=== PATIENT | male | born 1965 | race Two or more races ===

== ENCOUNTER 2017-01-07 10:47 | Inpatient (IN) | payer OTHER ==
--- NOTE | 2017-01-07 12:43 | PDOC ---
History of Present Illness - General Chief Complaint: Abscess Boil Stated Complaint: ABSCESS ON BACK Time Seen by Provider: 01/07/17 12:16 History Source: Patient Exam Limitations: No Limitations - History of Present Illness Initial Comments: 01/07/17 13:38 51-year-old male with borderline diabetes presents with worsening abscesses to the upper back. Patient states initially started as pimples and at the week went on day got redder bigger and started to drain pus colored fluid. Patient states also has had chills without a recordable fever. Patient denies radiation of pain, difficulty breathing, neck stiffness, or headache. Patient states has acne normally to his back but never to this extent and denies history of MRSA. Timing/Duration: getting worse Severity: moderate Associated Symptoms: reports: fever/chills Past History - Past Medical History Allergies/Adverse Reactions: Allergies Allergy/AdvReac Type Severity Reaction Status Date / Time No Known Allergies Allergy Verified 01/07/17 11:12 Home Medications: Ambulatory Orders NK [No Known Home Medication] 01/07/17 Diabetes: Yes (? dm no meds, non complaint) - Psycho/Social/Smoking Cessation Hx Anxiety: No Suicidal Ideation: No Smoking Status: No Smoking History: Never smoked Have you smoked in the past 12 months: No Number of Cigarettes Smoked Daily: 0 Information on smoking cessation initiated: No Hx Alcohol Use: No Drug/Substance Use Hx: No Patient Lives Alone: No Review of Systems - Review of Systems Able to Perform ROS?: Yes Constitutional: Yes: Chills. No: Fever HEENTM: No: Symptoms Reported Respiratory: No: Symptoms reported Cardiac (ROS): No: Lightheadedness ABD/GI: No: Symptoms Reported Integumentary: Yes: Erythema, Lumps Neurological: No: Symptoms reported Endocrine: No: Symptoms Reported Hematologic/Lymphatic: No: Symptoms Reported *Physical Exam - Vital Signs Last Vital Signs Temp Pulse Resp BP Pulse Ox 98.7 F 103 H 18 129/90 100 01/07/17 11:12 01/07/17 11:12 01/07/17 11:12 01/07/17 11:12 01/07/17 11:12 - Physical Exam General Appearance: Yes: Nourished, Appropriately Dressed. No: Apparent Distress Respiratory/Chest: positive: Lungs Clear, Normal Breath Sounds. negative: Respiratory Distress, Accessory Muscle Use Cardiovascular: positive: Regular Rhythm, Regular Rate. negative: Murmur Extremity: positive: Normal Capillary Refill. negative: Pedal Edema Integumentary: positive: Erythema (5 x 4" erythematous and my firm area over bilateral upper trapezius area with central region draining nonodorous purulent drainage. Area with increased warmth no palpable fluctuance. ) Neurologic: positive: Motor Strength 02/14 ED Treatment Course - LABORATORY CBC & Chemistry Diagram: 01/09/17 06:40 01/09/17 11:45 Medical Decision Making - Critical Care Time Total Critical Care Time (minutes): 35 Critical Care Statement: The care of this patient involved high complexity decision making to prevent further life threatening deterioration of the patient 's condition and/or to evalute & treat vital organ system(s) failure or risk of failure. - Medical Decision Making 01/07/17 13:15 Patient with redness and draining purulent fluid from his upper back for the past week. Patient on exam had large draining increased warmth abscesses to his upper trapezius. patient concerning for sepsis. Patient ordered for septic workup IV clindamycin, and wound cultures. 01/07/17 16:36 Laboratory Tests 01/07/17 01/07/17 01/07/17 13:08 13:08 13:08 Mixed VBG HCO3 Sodium 127 L Potassium 4.5 Chloride 88 L D Carbon Dioxide 26 Anion Gap 13 Random Glucose 579 H* D Lactic Acid 3.191 H* Alkaline Phosphatase 272 H Albumin 2.9 L Urine Glucose (UA) 3+ H Urine Ketones Trace H Acetone, Qual 01/07/17 01/07/17 14:40 16:29 Mixed VBG HCO3 24.0 Sodium Potassium Chloride Carbon Dioxide Anion Gap Random Glucose Lactic Acid Alkaline Phosphatase Albumin Urine Glucose (UA) Urine Ketones Acetone, Qual Pending 01/07/17 16:50 Patient added for second bag of IV fluid. Patient will be admitted to the hospitalist team since patient does not have a PCP. Patient will be sent for an ultrasound of the area to assess for depth and exact location. Patient will be admitted to hospitalist Dr. Bunn 01/07/17 18:39 Laboratory Tests 01/07/17 01/07/17 01/07/17 13:08 13:08 13:08 WBC 17.6 H Hgb 13.7 Hct 41.8 Plt Count 279 D INR 1.30 H Lactic Acid Urine Glucose (UA) 3+ H Urine Ketones Trace H Acetone, Qual 01/07/17 01/07/17 16:29 17:30 WBC Hgb Hct Plt Count INR Lactic Acid 1.986 Urine Glucose (UA) Urine Ketones Acetone, Qual Negative 01/07/17 18:39 Repeat bgm after 2nd bag 436. Pt ordered for 8 unit sq on insulin *DC/Admit/Observation/Transfer Diagnosis at time of Disposition: Cellulitis of back Sepsis Qualifiers: Sepsis type: sepsis due to unspecified organism Qualified Code(s): A41.9 - Sepsis, unspecified organism - Discharge Dispostion Admit: Yes
[2017-01-07] MEDS ORDERED: SODIUM CHLORIDE 1,000 ML IV STA ×3 (13:24→16:56)
[2017-01-07] MEDS ORDERED: CLINDAMYCIN IVPB 300 MG in DEXTROSE 5%-WATER - 48 ML IVPB ONE (13:27)
[2017-01-07] MEDS ORDERED: CLINDAMYCIN PHOSPHATE 600 MG/4 ML VIAL ONE (14:09)
[2017-01-07 14:43] LABS: VENOUS PH 7.37 (7.32-7.42)
--- NOTE | 2017-01-07 14:43 | PDOC ---
*Physical Exam - Vital Signs Last Vital Signs Temp Pulse Resp BP Pulse Ox 98.7 F 103 H 18 129/90 100 01/07/17 11:12 01/07/17 11:12 01/07/17 11:12 01/07/17 11:12 01/07/17 11:12 - Physical Exam Comments: 01/07/17 14:43 MIDLEVEL NOTE Pt seen by Midlevel Provider under my direct supervision. Pt interviewed and examined. Ancillary studies reviewed. I agree with plan as outlined by Midlevel Provider. EKG Normal sinus rhythm 100, normal axis Mode AV and IV conduction time Normal QTC Nonspecific ST-T waves There is no old EKG available for comparison 01/07/17 15:53 Laboratory Results - last 24 hr 01/07/17 14:40 VBG pH 7.37 POC VBG pCO2 42.1 POC VBG pO2 34.7 Mixed VBG HCO3 24.0 01/07/17 16:53 Laboratory Results - last 24 hr 01/07/17 01/07/17 01/07/17 13:08 13:08 13:08 WBC 17.6 H RBC 4.88 Hgb 13.7 Hct 41.8 MCV 85.6 MCHC 32.7 RDW 13.1 Plt Count 279 D MPV 7.7 Neutrophils % Y Lymphocytes % Y VBG pH POC VBG pCO2 POC VBG pO2 Mixed VBG HCO3 Sodium 127 L Potassium 4.5 Chloride 88 L D Carbon Dioxide 26 Anion Gap 13 BUN 14 Creatinine 1.1 D Creat Clearance w eGFR > 60 Random Glucose 579 H* D Lactic Acid Calcium 8.8 Total Bilirubin 0.5 AST 26 ALT 35 Alkaline Phosphatase 272 H Total Protein 8.0 Albumin 2.9 L Urine Color Straw Urine Appearance Clear Urine pH 6.0 Ur Specific [place] 1.035 Urine Protein Negative Urine Glucose (UA) 3+ H Urine Ketones Trace H Urine Blood Negative Urine Nitrite Negative Urine Bilirubin Negative Urine Urobilinogen Negative Ur Leukocyte Esterase Negative Blood Type Antibody Screen 01/07/17 01/07/17 01/07/17 13:08 13:08 14:40 WBC RBC Hgb Hct MCV MCHC RDW Plt Count MPV Neutrophils % Lymphocytes % VBG pH 7.37 POC VBG pCO2 42.1 POC VBG pO2 34.7 Mixed VBG HCO3 24.0 Sodium Potassium Chloride Carbon Dioxide Anion Gap BUN Creatinine Creat Clearance w eGFR Random Glucose Lactic Acid 3.191 H* Calcium Total Bilirubin AST ALT Alkaline Phosphatase Total Protein Albumin Urine Color Urine Appearance Urine pH Ur Specific [place] Urine Protein Urine Glucose (UA) Urine Ketones Urine Blood Urine Nitrite Urine Bilirubin Urine Urobilinogen Ur Leukocyte Esterase Blood Type O POSITIVE Antibody Screen Negative 51 male with two large upper back abscess and two smaller back abscesses causing cellulitis, erythema and discharge with leukocytosis lactic acid 3.1, DM OOC ED Treatment Course - LABORATORY CBC & Chemistry Diagram: 01/08/17 07:40 01/08/17 07:40 *DC/Admit/Observation/Transfer Diagnosis at time of Disposition: Cellulitis of back Sepsis Qualifiers: Sepsis type: sepsis due to unspecified organism Qualified Code(s): A41.9 - Sepsis, unspecified organism - Discharge Dispostion Admit: Yes
[2017-01-07] MEDS ORDERED: ACETAMINOPHEN 500 MG TABLET (FP) PO ONE (15:31)
--- NOTE | 2017-01-07 15:54 | EKG ---
Test Reason : Blood Pressure : / mmHG Vent. Rate : 100 BPM Atrial Rate : 100 BPM P-R Int : 142 ms QRS Dur : 096 ms QT Int : 348 ms P-R-T Axes : 056 042 007 degrees QTc Int : 448 ms NORMAL SINUS RHYTHM NONSPECIFIC T WAVE ABNORMALITY ABNORMAL ECG NO PREVIOUS ECGS AVAILABLE Confirmed by LESLEE CADET MD ([id number]) on 01/07/2017 3:54:52 PM Referred By: Confirmed By:LESLEE CADET MD
[2017-01-07 15:56] LABS: URINE APPEARANCE CLEAR; URINE BILIRUBIN NEGATIVE (NEGATIVE); URINE BLOOD NEGATIVE (NEGATIVE); URINE COLOR STRAW; URINE GLUCOSE (UA) 3+ (NEGATIVE); URINE KETONE TRACE (NEGATIVE); URINE LEUK ESTERASE NEGATIVE (NEGATIVE); URINE NITRITE NEGATIVE (NEGATIVE); URINE PROTEIN NEGATIVE (NEGATIVE); URINE UROBILINOGEN NEGATIVE E.U./dl (0.2-1.0)
[2017-01-07 15:59] LABS: ALBUMIN 2.9 g/dl (3.4-5.0); ALK PHOS 272 U/L (45-117); ANION GAP 13 (8-16); BILIRUBIN,TOTAL 0.5 mg/dL (0.2-1.0); CALCIUM 8.8 mg/dL (8.5-10.1); CO2 26 mmol/L (21-32); CREATININE 1.1 mg/dL (0.7-1.3); SGOT/AST 26 U/L (15-37); SGPT/ALT 35 U/L (12-78)
[2017-01-07 16:00] LABS: GLUCOSE,RANDOM 579 mg/dL (74-106); MCHC 32.7 g/dl (32.0-35.9); MEAN CELL VOLUME 85.6 fl (80-96); MEAN PLT VOLUME 7.7 fl (7.5-11.1); PLATELET COUNT 279 K/MM3 (134-434); RDW 13.1 % (11.9-15.9); WHITE BLOOD COUNT 17.6 K/mm3 (4.0-10.0)
[2017-01-07] MEDS ORDERED: ACETAMINOPHEN 325 MG TABLET (FP) ONE (16:03)
[2017-01-07 16:41] LABS: INR 1.3 (0.82-1.09); PROTHROMBIN TIME (PATIENT) 14.4 SEC (9.98-11.88)
[2017-01-07] MEDS ORDERED: PIPERACILLIN/TAZOB 4.5 GM/100 ML PRE-DOCKED IVPB ONE (18:00)
[2017-01-07] MEDS ORDERED: VANCOMYCIN 2,000 MG in DEXTROSE 5%-WATER - 500 ML IVPB ONE ×2 (18:00→22:30)
[2017-01-07] MEDS ORDERED: PIPERACILLIN/TAZOB 4.5 GM 100 ML IVPB ONE (18:18)
--- NOTE | 2017-01-07 18:31 | HP ---
CHIEF COMPLAINT:back wound PCP:n/a HISTORY OF PRESENT ILLNESS: 51 yea old male with no known past medical history except for "borderline diabetes" as per patient, presents to the emergency room complaining of 2 open wounds on back that he noticed 6 days ago. He said they started out as a pimple and opened with pus and surrounding swelling and erythema. He fell that area on his back is warm. He denies fever, chills. He was never had any skin infection before. He does not take any medication for diabetes. ER course was notable for: (1)2 open wounds on upper mid back; (2)Lactic acid 3.1; wbc 17 (3)glucose 579 Recent Travel: no PAST MEDICAL HISTORY: none to report PAST SURGICAL HISTORY: Social History: Smoking:quit 10yrs ago Alcohol:quit 10yrs ago Drugs: none Family History: Allergies No Known Allergies Allergy (Verified 01/07/17 11:12) HOME MEDICATIONS: Home Medications Medication Instructions Recorded NK [No Known Home Medication] 01/07/17 REVIEW OF SYSTEMS CONSTITUTIONAL: Absent: fever, chills, diaphoresis, generalized weakness, malaise, loss of appetite, weight change HEENT: Absent: rhinorrhea, nasal congestion, throat pain, throat swelling, difficulty swallowing, mouth swelling, ear pain, eye pain, visual changes CARDIOVASCULAR: Absent: chest pain, syncope, palpitations, irregular heart rate, lightheadedness , peripheral edema RESPIRATORY: Absent: cough, shortness of breath, dyspnea with exertion, orthopnea, wheezing, stridor, hemoptysis GASTROINTESTINAL: Absent: abdominal pain, abdominal distension, nausea, vomiting, diarrhea, constipation, melena, hematochezia GENITOURINARY: Absent: dysuria, frequency, urgency, hesitancy, hematuria, flank pain, genital pain MUSCULOSKELETAL: Absent: myalgia, arthralgia, joint swelling, back pain, neck pain SKIN: Positive: open skin wound puss, redness swelling Absent: rash, itching, pallor HEMATOLOGIC/IMMUNOLOGIC: Absent: easy bleeding, easy bruising, lymphadenopathy, frequent infections ENDOCRINE: Absent: unexplained weight gain, unexplained weight loss, heat intolerance, cold intolerance NEUROLOGIC: Absent: headache, focal weakness or paresthesias, dizziness, unsteady gait, seizure, mental status changes, bladder or bowel incontinence PSYCHIATRIC: Absent: anxiety, depression, suicidal or homicidal ideation, hallucinations. PHYSICAL EXAMINATION GENERAL: Awake, alert, and fully oriented, in no acute distress. HEAD: Normal with no signs of trauma. EYES: Pupils equal, round and reactive to light, extraocular movements intact, sclera anicteric, conjunctiva clear. No lid lag. EARS, NOSE, THROAT: Ears normal, nares patent, oropharynx clear without exudates. Moist mucous membranes. NECK: Normal range of motion, supple without lymphadenopathy, JVD, or masses. LUNGS: Breath sounds equal, clear to auscultation bilaterally. No wheezes, and no crackles. No accessory muscle use. HEART: Regular rate and rhythm, normal S1 and S2 without murmur, rub or gallop. ABDOMEN: Soft, nontender, not distended, normoactive bowel sounds, no guarding, no rebound, no masses. No hepatomegaly or splenomegaly. MUSCULOSKELETAL: Normal range of motion at all joints. No bony deformities or tenderness. No CVA tenderness. UPPER EXTREMITIES: 2+ pulses, warm, well-perfused. No cyanosis. No clubbing. No peripheral edema. LOWER EXTREMITIES: 2+ pulses, warm, well-perfused. No calf tenderness. No peripheral edema. NEUROLOGICAL: Cranial nerves II-XII intact. Normal speech. Normal gait. PSYCHIATRIC: Cooperative. Good eye contact. Appropriate mood and affect. SKIN: Warm, affected area supra scapular region on back one on left/one on right [id number] lesion with draining puss, surrounding erythema, edema, ASSESSMENT/PLAN: 51 year old male with past medical history of borderline diabetes not on any medications, presents with two open lesion on back with surrounding erythema, edema, oozing pus, and pain, admitted for sepsis secondary to cellulitis. # Sepsis secondary to cellulitis of the back -elevated wbc 17, LA 3.1 -IVF bolus x3; maintenance NS 150ml/s hr until LA trends down -wound cx, blood cx -start IV antibiotics -ultrasound area r/o abscess -ID / surgery consult for possible I/D # Uncontrolled Diabetes; not on any medications: -glucose 597 on admission; no associated symptoms -insulin 8U in ER -start insulin SS; -hemoglobin A1C #hypernatremia secondary to elevated glucose -corrected NA 135; wnl FEN: Fluids: NS 150mls/hr Electrolyes; wnl Diet: diabetic VTE prophylaxis: loxenox Disposition: IV antibiotics; surgery consuly Visit type - Emergency Visit Emergency Visit: Yes ED Registration Date: 01/07/17 Care time: The patient presented to the Emergency Department on the above date and was hospitalized for further evaluation of their emergent condition. - New Patient This patient is new to me today: Yes Date on this admission: 01/07/17 - Critical Care Critical Care patient: No
[2017-01-07] MEDS ORDERED: INSULIN REGULAR HUMAN 100 UNITS/ML *VIAL SQ ONE (18:38)
[2017-01-07] MEDS ORDERED: INSULIN REGULAR HUMAN 100 UNITS/ML *VIAL ONE (18:42)
[2017-01-07] MEDS ORDERED: SODIUM CHLORIDE 1,000 ML IV SCH (18:45)
[2017-01-07] MEDS: ACETAMINOPHEN 325 MG TABLET (FP) PO PRN (20:24)
[2017-01-07] MEDS ORDERED: INSULIN SLIDING SCALE (NOVOLOG) 1 VIAL SQ SCH (22:00)
[2017-01-07 22:13] LABS: PLATELET ESTIMATE ADEQUATE (NORMAL)
[2017-01-07] MEDS: INSULIN SLIDING SCALE (NOVOLOG) 1 VIAL SQ SCH (22:29)
[2017-01-08 00:05] VITALS: BMI 29.5
[2017-01-08] MEDS: SODIUM CHLORIDE 1,000 ML IV SCH ×3 (01:43→17:43)
[2017-01-08] MEDS ORDERED: ACETAMINOPHEN 1000 MG/100 ML VIAL (NON FORMULARY) IVPB ONE (02:32)
--- NOTE | 2017-01-08 02:35 | HOSP ---
Subjective - Review of Symptoms Events since last encounter: Was paged by the nurse to inform that patient's temp is 102 F. Patient's blood culture was done yesterday hence didn't order blood culture. He is now NPO for possible surgery in the morning. Ordered IV Tylenol 1gm stat for fever. Physical Examination Vital Signs: Vital Signs Temperature 99.9 F H 01/07/17 22:00 Pulse Rate 101 H 01/07/17 21:00 Respiratory Rate 16 01/07/17 21:00 Blood Pressure 159/84 01/07/17 21:00 O2 Sat by Pulse Oximetry (%) 100 01/07/17 21:00 Visit type - Emergency Visit Emergency Visit: Yes ED Registration Date: 01/07/17 Care time: The patient presented to the Emergency Department on the above date and was hospitalized for further evaluation of their emergent condition. - New Patient This patient is new to me today: Yes Date on this admission: 01/08/17 - Critical Care Critical Care patient: No
[2017-01-08] MEDS: INSULIN SLIDING SCALE (NOVOLOG) 1 VIAL SQ SCH ×4 (06:31→22:30)
[2017-01-08] MEDS ORDERED: SODIUM CHLORIDE 1,000 ML IV SCH (06:32)
[2017-01-08] MEDS ORDERED: morphine CARPU-JECT 2 MG/1 ML DISP.SYRIN IVPUSH PRN ×2 (07:44→16:09)
[2017-01-08 08:29] LABS: MCH 28.4 pg (25.7-33.7); MCHC 33.5 g/dl (32.0-35.9); MEAN CELL VOLUME 84.9 fl (80-96); MEAN PLT VOLUME 7.3 fl (7.5-11.1); PLATELET COUNT 259 K/MM3 (134-434); RDW 12.9 % (11.9-15.9); WHITE BLOOD COUNT 21.1 K/mm3 (4.0-10.0)
[2017-01-08 08:53] LABS: ALBUMIN 2.2 g/dl (3.4-5.0); ANION GAP 12 (8-16); CALCIUM 7.9 mg/dL (8.5-10.1); CO2 24 mmol/L (21-32); CREATININE 0.7 mg/dL (0.7-1.3); GLUCOSE,RANDOM 211 mg/dL (74-106); SGOT/AST 20 U/L (15-37); SGPT/ALT 25 U/L (12-78)
[2017-01-08 08:56] LABS: ALK PHOS 204 U/L (45-117); BILIRUBIN,TOTAL 0.7 mg/dL (0.2-1.0); TOT PROT 6.6 g/dl (6.4-8.2)
[2017-01-08] MEDS ORDERED: ENOXAPARIN NA (PORCINE) 40 MG/0.4 ML DISP.SYRIN SQ SCH (10:00)
--- NOTE | 2017-01-08 10:05 | PN ---
Progress Note (short form) - Note Progress Note: ID consult dictated 51 year old man with DM- doesn't go to the doctor, doesn't take any meds developed enlarging abscesses at the site of small pustules on his back- they have been enlarging over the last 6 days +fevers no history of MRSA, no history of prior skin infection received vancomycin/zosyn/clindamycin in ED PE notable for fever 2 large abscess draining purulent material multiple small pustules on his back erythema flanks wbc 21k lactic acid 3.1 /1.9 repeat Laboratory Tests 01/08/17 07:40 Hemoglobin A1c % 11.9 H a/p sepsis secondary to skin infection large subcutaneous abscesses/cellulitis uncontrolled diabetes continue vancomycin and zosyn most likely staph but given uncontrolled DM will treat GNR too needs operative debridement Problem List - Problems (1) Sepsis Code(s): A41.9 - SEPSIS, UNSPECIFIED ORGANISM Qualifiers: Sepsis type: sepsis due to unspecified organism Qualified Code(s): A41.9 - Sepsis, unspecified organism (2) Abscess Code(s): L02.91 - CUTANEOUS ABSCESS, UNSPECIFIED (3) Diabetes Code(s): E11.9 - TYPE 2 DIABETES MELLITUS WITHOUT COMPLICATIONS
[2017-01-08] MEDS ORDERED: morphine CARPU-JECT 2 MG/1 ML DISP.SYRIN IVPUSH ONE (11:45)
[2017-01-08] MEDS ORDERED: PIPERACILLIN/TAZOB 3.375 GM 50 ML IVPB ONE (11:55)
--- NOTE | 2017-01-08 12:08 | CONSULT ---
Consult Consult Specialty:: Surgery Reason for Consultation:: Back abscesses - History of Present Illness History of Present Illness: 51 male presents for two upper back abscesses that he started to notice six days prior They increased in size, became tender, red, and noticed purulent discharge Denies fevers/chills/nausea/vomiting Also states he started to notice two smaller lower back collection that have developed as well - History Source History Provided By: Patient, Family Member - Past Medical History Endocrine: Yes: Diabetes Mellitus (Borderline) - Alcohol/Substance Use Hx Alcohol Use: No - Smoking History Smoking history: Never smoked Have you smoked in the past 12 months: No Aproximately how many cigarettes per day: 0 - Social History ADL: Independent Home Medications - Allergies Allergies/Adverse Reactions: Allergies Allergy/AdvReac Type Severity Reaction Status Date / Time No Known Allergies Allergy Verified 01/07/17 11:12 - Home Medications Home Medications: Ambulatory Orders NK [No Known Home Medication] 01/07/17 Family Disease History - Family Disease History Family History: Unremarkable Review of Systems - Review of Systems Constitutional: denies: Chills, Fever Neck: reports: No Symptoms Cardiovascular: denies: Chest Pain Respiratory: denies: Cough Gastrointestinal: denies: Abdominal Pain, Nausea, Vomiting Genitourinary: reports: No Symptoms Integumentary: reports: Erythema, Other (Purulent discharge from upper back collections) Neurological: denies: Change in LOC Pain Intensity: 3 Physical Exam Vital Signs: Vital Signs Temperature 99.3 F 01/08/17 09:00 Pulse Rate 96 H 01/08/17 09:00 Respiratory Rate 18 01/08/17 09:00 Blood Pressure 132/75 01/08/17 09:00 O2 Sat by Pulse Oximetry (%) 100 01/07/17 21:00 Constitutional: Yes: Calm HENT: Yes: WNL Neck: Yes: Supple Cardiovascular: Yes: Regular Rate and Rhythm Respiratory: Yes: CTA Bilaterally Gastrointestinal: Yes: Soft. No: Distention, Tenderness, Tenderness, Rebound Extremities: Yes: WNL Integumentary: Yes: Other (Large upper back wounds x 2- + Erythema, + purulent discharge, + tender, + surrounding skin edema and thickening, central ulcerations both 2cm x 2cm in size Lower back wounds x 2- + erythema) Neurological: Yes: Alert, Oriented Labs: CBC, BMP 01/08/17 07:40 01/08/17 07:40 Problem List - Problems (1) Cellulitis of back Code(s): L03.312 - CELLULITIS OF BACK [ANY PART EXCEPT BUTTOCK] (2) Diabetes Code(s): E11.9 - TYPE 2 DIABETES MELLITUS WITHOUT COMPLICATIONS Qualifiers: Diabetes mellitus type: other specified (including LETICIA) (3) Abscess of upper back excluding scapular region Code(s): L02.212 - CUTANEOUS ABSCESS OF BACK [ANY PART, EXCEPT BUTTOCK] (4) Abscess of lower back Code(s): L02.212 - CUTANEOUS ABSCESS OF BACK [ANY PART, EXCEPT BUTTOCK] (5) Leukocytosis Code(s): D72.829 - ELEVATED WHITE BLOOD CELL COUNT, UNSPECIFIED Qualifiers: Leukocytosis type: other Qualified Code(s): D72.828 - Other elevated white blood cell count Assessment/Plan 51 male with two large upper back abscess and two smaller back abscesses causing cellulitis, erythema and discharge with leukocytosis Will need incision and drainage in the OR Antibiotics per ID Wound care and packing daily
[2017-01-08] MEDS ORDERED: PIPERACILLIN/TAZOB 4.5 GM/100 ML PRE-DOCKED IVPB SCH ×3 (12:15→18:00)
[2017-01-08 12:29] LABS: METAMYELOCYTE 1 % (0-2)
[2017-01-08] MEDS ORDERED: VANCOMYCIN 1,250 MG in DEXTROSE 5%-WATER - 250 ML IVPB SCH (12:30)
[2017-01-08 12:31] LABS: PLATELET ESTIMATE ADEQUATE (NORMAL)
[2017-01-08] MEDS ORDERED: LIDOCAINE HCL 1%, 10 MG/ML (20ML VIAL) ONE (13:21)
[2017-01-08] MEDS: ACETAMINOPHEN 325 MG TABLET (FP) PO PRN (13:55)
--- NOTE | 2017-01-08 13:59 | CONS ---
DATE OF CONSULTATION: DATE OF DICTATION: 01/08/2017 REQUESTING PHYSICIAN: The hospitalist service. HISTORY OF PRESENT ILLNESS: This is a 51-year-old man on no medicines, he has no doctor, he has a history of diabetes for the last 3 years, he does not take any medicine, and he presented to the emergency room with large abscess on his back. He said they started as small pustules which he has scattered on his back. Over the course of the last 6 days, they enlarged. He has 2 very large abscesses now on his shoulders. They are draining both when pressure is applied or draining pus. He has had fever, as well. He has no difficulty breathing. He has no neck stiffness. He has no headache. He has never had a skin infection before. He has never had MRSA. ALLERGIES: He has no known drug allergies. MEDICATIONS: He takes no medicines. PAST MEDICAL HISTORY: Notable for diabetes for 3 years, but he is not taking any medicines. FAMILY HISTORY: Noncontributory. SOCIAL HISTORY: He is . He lives with his family. There is no history of any alcohol use. There is no history of any cigarette use. 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 REVIEW OF SYSTEMS: Notable for 6 days of intermittent fevers, worsening infection on his worsening abscesses. He denies diarrhea, nausea, and vomiting. He has had fevers and chills. PHYSICAL EXAMINATION Vital signs: Current temperature is 99.3, maximum temperature was 102.5. His blood pressure is 132/75, pulse at 96, respiratory rate 18, saturating 100% on room air. HEENT: He is normocephalic. His eyes are anicteric. He has no conjunctival hemorrhages. He has no thrush. Neck: Supple. Lungs: Clear to auscultation. Heart: Regular rate and rhythm. Abdomen: Soft, nontender. Extremities: Without edema. Back: On his back, he has 2 very large abscesses with erythema and some purulent drainage on pressure in his upper back. He has some small pustules on his lower back, and he has some erythema of his flanks. DIAGNOSTIC DATA: Labs are notable for a white count of 21,000, hemoglobin 12.5, platelets are 259. BUN is 11, creatinine is 0.7, hemoglobin A1c is 11.9, alkaline phosphatase is 205. Urinalysis is notable for a glucose, otherwise negative. Acetones are negative. Blood cultures and cultures to the wound are pending. Sonogram of the back was done that revealed subcutaneous density from the right and left upper back. His lactic acid was 3.1 in the emergency room, repeat at 1.9. SUMMARY: This is a 51-year-old man with uncontrolled diabetes with sepsis secondary to skin infection with large subcutaneous abscesses and cellulitis. This is most likely staphylococcus, but given his uncontrolled diabetes, I would treat him for gram-negative rods, as well. Would continue vancomycin and Zosyn. He needs operative debridement, which is being planned for today. Further recommendations to followed based on his clinical course. ALLY AMEZCUA M.D. [id number]
[2017-01-08] MEDS ORDERED: DESFLURANE GAS 240 ML BOTTLE IH ONE (14:15)
[2017-01-08] MEDS ORDERED: SEVOFLURANE 250 ML BTL ONE (14:19)
[2017-01-08] MEDS ORDERED: PROPOFOL 20 ML ONE ×3 (14:23)
[2017-01-08] MEDS ORDERED: MIDAZOLAM HCL 2 MG/2 ML SINGLE DOSE VIAL ONE ×2 (14:24)
[2017-01-08] MEDS ORDERED: KETAMINE HCL 200 MG/20 ML VIAL ONE (14:31)
[2017-01-08] MEDS ORDERED: KETOROLAC TROMETHAMINE 30 MG/1 ML VIAL ONE (14:45)
[2017-01-08] MEDS ORDERED: LIDOCAINE HCL 1%, 10 MG/ML (20ML VIAL) IJ ONE ×2 (14:52)
--- NOTE | 2017-01-08 15:05 | PN ---
Teaching Attending Note Name of Resident: Ila Covington ATTENDING PHYSICIAN STATEMENT I saw and evaluated the patient. I reviewed the resident's note and discussed the case with the resident. I agree with the resident's findings and plan as documented. SUBJECTIVE: seen and evaluated at the bedside OBJECTIVE: two areas of induration and erthema draining pus on upper back ASSESSMENT AND PLAN: 51 year old man with newly diagnosed DM admitted for sepsis due to 2 abscesses on upper back abscesses -surgery consult appreciated, for I+D in O.R. today -ID consult appreciated; agree with vanc/zosyn -follow up cultures -trend WBC and temp DM -pt is newly diagnosed as he does not follow with a PMD -Hb A1C of 12 -cont sliding scale -will likely discharge on Metformin
--- NOTE | 2017-01-08 15:25 | OP ---
Operative Note - Note: Operative Date: 01/08/17 Pre-Operative Diagnosis: Upper back abscess x 2. Lower back abscess x 2 Operation: Incision and drainage of back abscess x 4 Findings: Large upper back abscess cavities with copious amounts of purulent drainage Post-Operative Diagnosis: Same as Pre-op Surgeon: Gamaliel Moise Receiving Specialist: Marilu Johnson Anesthesia: General Specimens Removed: Culture x 2 Estimated Blood Loss (mls): 5 Operative Report Dictated: Yes
[2017-01-08] MEDS ORDERED: LACTATED RINGERS SOLUTION 1,000 ML IV SCH (15:45)
[2017-01-08] MEDS ORDERED: ACETAMINOPHEN 325 MG TABLET (FP) PO PRN (16:09)
[2017-01-08] MEDS ORDERED: OXYCODONE/APAP 5/325MG COMBO TABLET PO PRN (16:37)
[2017-01-08] MEDS ORDERED: HYDROmorphone HCL CARPU-JECT 1 MG/1 ML DISP.SYRIN IVPB PRN (16:37)
--- NOTE | 2017-01-08 16:53 | PN ---
Physical Exam: SUBJECTIVE: Patient seen and examined increased pain this am, fever 102F overnight. OR today for I/D OBJECTIVE: Vital Signs Period Temp Pulse Resp BP Sys/Cabrera Pulse Ox Last 24 Hr 99.1 F-102.5 F 85-101 16-18 126-159/59-89 99-100 GENERAL: The patient is awake, alert, and fully oriented, in no acute distress. HEAD: Normal with no signs of trauma. EYES: PERRL, extraocular movements intact, sclera anicteric, conjunctiva clear. No ptosis. ENT: Ears normal, nares patent, oropharynx clear without exudates, moist mucous membranes. NECK: Trachea midline, full range of motion, supple. LUNGS: Breath sounds equal, clear to auscultation bilaterally, no wheezes, no crackles, no accessory muscle use. HEART: Regular rate and rhythm, S1, S2 without murmur, rub or gallop. ABDOMEN: Soft, nontender, nondistended, normoactive bowel sounds, no guarding, no rebound, no hepatosplenomegaly, no masses. EXTREMITIES: 2+ pulses, warm, well-perfused, no edema. NEUROLOGICAL: Cranial nerves II through XII grossly intact. Normal speech, gait not observed. PSYCH: Normal mood, normal affect. SKIN: Warm, dry, normal turgor, no rashes or lesions noted; two [id number] open infected, draining purulent fluid on left and right back, with surrounding erythema and edema. Laboratory Results - last 24 hr 01/07/17 01/07/17 01/07/17 17:30 18:28 21:17 WBC RBC Hgb Hct MCV MCHC RDW Plt Count MPV Neutrophils % Lymphocytes % Monocytes % Eosinophils % Basophils % Band Neutrophils Metamyelocytes Differential Comment Platelet Estimate Sodium Potassium Chloride Carbon Dioxide Anion Gap BUN Creatinine Creat Clearance w eGFR POC Glucometer > 400 250 Random Glucose Hemoglobin A1c % Lactic Acid 1.986 Calcium Total Bilirubin AST ALT Alkaline Phosphatase Total Protein Albumin Random Vancomycin 01/08/17 01/08/17 01/08/17 05:49 07:40 07:40 WBC 21.1 H RBC 4.41 Hgb 12.5 Hct 37.4 MCV 84.9 MCHC 33.5 RDW 12.9 Plt Count 259 MPV 7.3 L Neutrophils % 81.0 Lymphocytes % 11.0 D Monocytes % 4.0 Eosinophils % 1.0 Basophils % 0.0 Band Neutrophils 2.0 D Metamyelocytes 1 Differential Comment Manual diff done Platelet Estimate Adequate Sodium 135 L Potassium 4.9 Chloride 99 D Carbon Dioxide 24 Anion Gap 12 BUN 11 D Creatinine 0.7 D Creat Clearance w eGFR > 60 POC Glucometer 223 Random Glucose 211 H D Hemoglobin A1c % Lactic Acid Calcium 7.9 L Total Bilirubin 0.7 D AST 20 D ALT 25 D Alkaline Phosphatase 204 H D Total Protein 6.6 Albumin 2.2 L D Random Vancomycin 01/08/17 01/08/17 01/08/17 07:40 10:10 12:10 WBC RBC Hgb Hct MCV MCHC RDW Plt Count MPV Neutrophils % Lymphocytes % Monocytes % Eosinophils % Basophils % Band Neutrophils Metamyelocytes Differential Comment Platelet Estimate Sodium Potassium Chloride Carbon Dioxide Anion Gap BUN Creatinine Creat Clearance w eGFR POC Glucometer 202 Random Glucose Hemoglobin A1c % 11.9 H Lactic Acid Calcium Total Bilirubin AST ALT Alkaline Phosphatase Total Protein Albumin Random Vancomycin 6.173 Active Medications Generic Name Dose Route Start Last Admin Trade Name Freq PRN Reason Stop Dose Admin Acetaminophen 650 mg 01/08/17 16:09 Tylenol - PO Q4H PRN FEVER OR PAIN Fentanyl 50 mcg 01/08/17 15:43 Sublimaze Injection - IVPUSH 01/11/17 15:44 [id number] PRN PAIN Hydromorphone HCl 1 mg 01/08/17 16:37 Dilaudid Injection - IVPB Q4H PRN PAIN Lactated Ringer's 1,000 mls @ 75 mls/hr 01/08/17 15:45 Lactated Ringers Solution IV ASDIR MONSERRAT Sodium Chloride 1,000 mls @ 100 mls/hr 01/08/17 16:09 Normal Saline - IV ASDIR MONSERRAT Vancomycin HCl 1,250 mg/ 250 mls @ 250 mls/hr 01/08/17 22:00 Dextrose IVPB BID MONSERRAT Protocol Insulin Aspart 0 vial 01/08/17 16:30 Novolog Vial Sliding Scale - SQ ACHS [facility] Protocol Oxycodone/Acetaminophen 2 combo 01/08/17 16:37 Percocet 5/325 - PO Q4H PRN PAIN LEVEL 6-10 Piperacillin Sod/Tazobactam Sod 4.5 gm 01/08/17 18:00 Zosyn 4.5gm Ivpb (Pre-Docked) IVPB Q8H-IV MONSERRAT ASSESSMENT/PLAN: 51 year old male with past medical history of borderline diabetes not on any medications, presents with two open lesion on back with surrounding erythema, edema, oozing pus, and pain, admitted for sepsis secondary to cellulitis. # Sepsis secondary to multiple abscess of the back; I&D today -wbc count increased from 17 to 21 this am; fever 102 overnight; lactic acid trended down -IVF LR 75mls hr -wound cx, blood cx pending -start IV antibiotics -ID / surgery # Uncontrolled Diabetes; not on any medications: -glucose 597 on admission; no associated symptoms -insulin SS; -hemoglobin A1C 11.9 #hypernatremia secondary to elevated glucose -corrected NA 135; wnl FEN: Fluids: LR 75mls/hr Electrolyes; wnl Diet: diabetic VTE prophylaxis: loxenox Disposition: IV antibiotics; surgery consult Visit type - Emergency Visit Emergency Visit: Yes ED Registration Date: 01/07/17 Care time: The patient presented to the Emergency Department on the above date and was hospitalized for further evaluation of their emergent condition. - New Patient This patient is new to me today: No - Critical Care Critical Care patient: No
[2017-01-08] MEDS: PIPERACILLIN/TAZOB 4.5 GM/100 ML PRE-DOCKED IVPB SCH (21:20)
[2017-01-08] MEDS: VANCOMYCIN 1,250 MG in DEXTROSE 5%-WATER - 250 ML IVPB SCH (22:31)
[2017-01-09] MEDS: PIPERACILLIN/TAZOB 4.5 GM/100 ML PRE-DOCKED IVPB SCH ×3 (06:09→21:11)
[2017-01-09] MEDS: INSULIN SLIDING SCALE (NOVOLOG) 1 VIAL SQ SCH ×5 (06:09→21:43)
[2017-01-09] MEDS: SODIUM CHLORIDE 1,000 ML IV SCH ×3 (06:10→21:11)
[2017-01-09 07:37] LABS: MCHC 32.8 g/dl (32.0-35.9); MEAN CELL VOLUME 85.3 fl (80-96); MEAN PLT VOLUME 7.3 fl (7.5-11.1); PLATELET COUNT 264 K/MM3 (134-434); RDW 12.8 % (11.9-15.9); WHITE BLOOD COUNT 20.8 K/mm3 (4.0-10.0)
[2017-01-09 08:10] LABS: CALCIUM 8.1 mg/dL (8.5-10.1); CREATININE 0.8 mg/dL (0.7-1.3)
--- NOTE | 2017-01-09 08:44 | OP ---
DATE OF OPERATION: 01/08/2017 SURGEON: Elisabet Moise MD DIRECTOR OF EDUCATION: DESIREE Mccarthy PREOPERATIVE DIAGNOSIS: Upper back abscess cavity x2, lower back abscess cavity x2. POSTOPERATIVE DIAGNOSIS: Upper back abscess cavity x2, lower back abscess cavity x2. PROCEDURE PERFORMED: Incision and drainage of back abscesses x4. ANESTHESIA: General. SPECIMEN: Culture x2. REASON FOR PROCEDURE: This is a 51-year-old gentleman who presented to the hospital for tenderness, redness and drainage noted at 2 areas on his upper back, consistent with abscess cavities. In addition, edema, cellulitis and open ulcerations were noted on exam. There was also noted to be purulent discharge from both ulcer cavities. In addition, there were 2 small abscess cavities in the lower aspect of his back. He developed a fever and had leukocytosis. Because of this, he was consented for incision and drainage of back abscesses x4. The risks and benefits of the procedure were explained. These included bleeding, infection, prolonged wound healing, and injury to surrounding structures. Informed consent was obtained. DESCRIPTION OF PROCEDURE: The patient was placed prone on the operating room table. He underwent MAC by Anesthesia. The area was prepped and draped with Betadine in the usual sterile fashion. A time-out was performed. Lateral incisions were made at both upper back abscesses, and copious amounts of purulent drainage was noted. Blunt finger dissection was used to break open all abscess cavity pockets. Again, further extensive copious purulent drainage was noted from both wounds. The abscess cavities were approximately 4 x 4 x 4 cm in diameter. Hemostasis was obtained using electrocautery and pressure. Both were copiously irrigated and suctioned. Both were packed tightly with Kerlix soaked in Betadine. Dressings were applied. The lower back abscesses were noted to be small, and stab wound incisions were made to open them up. Purulent discharge was noted from both as well. Hemostasis was achieved with pressure and dressing was applied. The patient tolerated the procedure well and was transferred to the recovery room in stable condition. ELISABET MOISE M.D. DANYELLE/[id number]
[2017-01-09 09:29] LABS: PLATELET ESTIMATE ADEQUATE (NORMAL)
[2017-01-09] MEDS: VANCOMYCIN 1,250 MG in DEXTROSE 5%-WATER - 250 ML IVPB SCH ×2 (09:50→22:31)
--- NOTE | 2017-01-09 11:54 | PN ---
Progress Note (short form) - Note Progress Note: POD 1 Incision and drainage of back abscesses x 4 Pain controlled No events Vital Signs Period Temp Pulse Resp BP Sys/Cabrera Pulse Ox Last 24 Hr 97.6 F-102.5 F 73-101 12-20 119-146/68-86 86-100 Wounds packed- to be changed by RN daily CBC, BMP 01/09/17 06:40 01/09/17 06:40 Doing well Continue antibiotics Daily dressing changes with kerlex in betadine VNS ordered Can be discharged home on antibiotics per ID when WBC normalizes Problem List - Problems (1) Cellulitis of back Code(s): L03.312 - CELLULITIS OF BACK [ANY PART EXCEPT BUTTOCK] (2) Diabetes Code(s): E11.9 - TYPE 2 DIABETES MELLITUS WITHOUT COMPLICATIONS Qualifiers: Diabetes mellitus type: other specified (including LETICIA) (3) Abscess of upper back excluding scapular region Code(s): L02.212 - CUTANEOUS ABSCESS OF BACK [ANY PART, EXCEPT BUTTOCK] (4) Abscess of lower back Code(s): L02.212 - CUTANEOUS ABSCESS OF BACK [ANY PART, EXCEPT BUTTOCK] (5) Leukocytosis Code(s): D72.829 - ELEVATED WHITE BLOOD CELL COUNT, UNSPECIFIED Qualifiers: Leukocytosis type: other Qualified Code(s): D72.828 - Other elevated white blood cell count
--- NOTE | 2017-01-09 11:56 | PN ---
<Ila Covington - Last Filed: 01/09/17 11:57> Physical Exam: SUBJECTIVE: Patient seen and examined POD #1 I&D for back abscesses x4; afebrile ; wbc still elevated; pain well controlled. OBJECTIVE: Vital Signs Period Temp Pulse Resp BP Sys/Cabrera Pulse Ox Last 24 Hr 97.6 F-102.5 F 73-101 12-20 119-146/68-86 86-100 GENERAL: The patient is awake, alert, and fully oriented, in no acute distress. HEAD: Normal with no signs of trauma. EYES: PERRL, extraocular movements intact, sclera anicteric, conjunctiva clear. No ptosis. ENT: Ears normal, nares patent, oropharynx clear without exudates, moist mucous membranes. NECK: Trachea midline, full range of motion, supple. LUNGS: Breath sounds equal, clear to auscultation bilaterally, no wheezes, no crackles, no accessory muscle use. HEART: Regular rate and rhythm, S1, S2 without murmur, rub or gallop. ABDOMEN: Soft, nontender, nondistended, normoactive bowel sounds, no guarding, no rebound, no hepatosplenomegaly, no masses. EXTREMITIES: 2+ pulses, warm, well-perfused, no edema. NEUROLOGICAL: Cranial nerves II through XII grossly intact. Normal speech, gait not observed. PSYCH: Normal mood, normal affect. SKIN: Warm, dry, normal turgor, POD#1 for abscess drain; wounds clean dry in tact, no puss or drainage from site; still with erythema and some swelling surrounding wound Laboratory Results - last 24 hr 01/08/17 01/08/17 01/08/17 07:40 12:10 17:04 WBC RBC Hgb Hct MCV MCHC RDW Plt Count MPV Neutrophils % 81.0 Lymphocytes % 11.0 D Monocytes % 4.0 Eosinophils % 1.0 Basophils % 0.0 Band Neutrophils 2.0 D Metamyelocytes 1 Differential Comment Manual diff done Platelet Estimate Adequate Sodium Potassium Chloride Carbon Dioxide Anion Gap BUN Creatinine POC Glucometer 202 267 Random Glucose Calcium 01/08/17 01/09/17 01/09/17 21:12 05:46 06:40 WBC 20.8 H RBC 4.28 Hgb 12.0 Hct 36.5 MCV 85.3 MCHC 32.8 RDW 12.8 Plt Count 264 MPV 7.3 L Neutrophils % 94.0 H Lymphocytes % 4.0 L D Monocytes % 1.0 L Eosinophils % Basophils % Band Neutrophils 2.0 Metamyelocytes Differential Comment Manual diff done Platelet Estimate Adequate Sodium Potassium Chloride Carbon Dioxide Anion Gap BUN Creatinine POC Glucometer 397 317 Random Glucose Calcium 01/09/17 06:40 WBC RBC Hgb Hct MCV MCHC RDW Plt Count MPV Neutrophils % Lymphocytes % Monocytes % Eosinophils % Basophils % Band Neutrophils Metamyelocytes Differential Comment Platelet Estimate Sodium 134 L Potassium 4.7 Chloride 98 Carbon Dioxide 22 Anion Gap 14 BUN 21 H D Creatinine 0.8 POC Glucometer Random Glucose 341 H* D Calcium 8.1 L Active Medications Generic Name Dose Route Start Last Admin Trade Name Freq PRN Reason Stop Dose Admin Acetaminophen 650 mg 01/08/17 16:09 Tylenol - PO Q4H PRN FEVER OR PAIN Acetaminophen 650 mg 01/08/17 17:01 Tylenol - PO 01/11/17 17:00 Q4H PRN PAIN 6-10 Hydromorphone HCl 1 mg 01/08/17 16:37 Dilaudid Injection - IVPB Q4H PRN PAIN Lactated Ringer's 1,000 mls @ 75 mls/hr 01/08/17 15:45 01/08/17 19:10 Lactated Ringers Solution IV Not Given ASDIR MONSERRAT Sodium Chloride 1,000 mls @ 100 mls/hr 01/08/17 16:09 01/09/17 06:10 Normal Saline - IV 100 mls/hr ASDIR MONSERRAT Administration Vancomycin HCl 1,250 mg/ 250 mls @ 166.667 mls/hr 01/08/17 22:00 01/09/17 09:50 Dextrose IVPB 166.667 mls/hr BID MONSERRAT Administration Protocol Insulin Aspart 1 vial 01/08/17 16:30 01/09/17 06:09 Novolog Vial Sliding Scale - SQ 8 units ACHS MONSERRAT Administration Protocol Oxycodone HCl 10 mg 01/08/17 17:01 Roxicodone - PO Q4H PRN PAIN 6-10 Piperacillin Sod/Tazobactam Sod 4.5 gm 01/08/17 22:00 01/09/17 06:09 Zosyn 4.5gm Ivpb (Pre-Docked) IVPB 4.5 gm 0600,1400,2200 MONSERRAT Administration ASSESSMENT/PLAN: 51 year old male with past medical history of borderline diabetes not on any medications, presents with two open lesion on back with surrounding erythema, edema, oozing pus, and pain, admitted for sepsis secondary to cellulitis. # Sepsis secondary to multiple abscess of the back; I&D POD1 -wbc count still 20.8 this am; no fever overnight -IVF LR 75mls hr -dressing with kerlex in betadine daily -wound cx, blood cx pending -cont IV antibiotics with vanc and zosyn; check vano trough # Newly diagnosed Diabetes type II; -check insulin need in 24hr; patient was npo yesterday for sx -insulin SS; -hemoglobin A1C 11.9 #hypernatremia -resolved FEN: Fluids: LR 75mls/hr Electrolyes; wnl Diet: diabetic VTE prophylaxis: loxenox Disposition: IV antibiotics; surgery consult can d/c when wbc trend down; po antibiotics as per id; f/u cultures Visit type - Emergency Visit Emergency Visit: Yes ED Registration Date: 01/07/17 Care time: The patient presented to the Emergency Department on the above date and was hospitalized for further evaluation of their emergent condition. - New Patient This patient is new to me today: No - Critical Care Critical Care patient: No <Segundo Bunn - Last Filed: 01/09/17 12:21> Physical Exam: ATTENDING PHYSICIAN STATEMENT I saw and evaluated the patient. I reviewed the resident's note and discussed the case with the resident. I agree with the resident's findings and plan as documented. SUBJECTIVE: seen and evaluated at the bedside OBJECTIVE: two areas of induration and erthema draining pus on upper back ASSESSMENT AND PLAN: 51 year old man with newly diagnosed DM admitted for sepsis due to 2 abscesses on upper back abscesses -surgery consult appreciated s/p I+D in O.R. with large amount of puss removed -ID consult appreciated; agree with vanc/zosyn -follow up cultures -trend WBC and temp DM -pt is newly diagnosed as he does not follow with a PMD -Hb A1C of 12 -cont sliding scale -will likely discharge on Metformin and lifestyle modification as a starting point
[2017-01-09] MEDS: ACETAMINOPHEN 325 MG TABLET (FP) PO PRN (12:04)
[2017-01-09] MEDS: oxyCODONE HCL 5 MG TABLET PO PRN (12:05)
[2017-01-09 14:38] LABS: HIV 1 & 2 AB NEGATIVE; HIV 1 AGp24 NEGATIVE
--- NOTE | 2017-01-09 15:48 | PN ---
Progress Note (short form) - Note Progress Note: feels better no fever Vital Signs Period Temp Pulse Resp BP Sys/Cabrera Pulse Ox Last 24 Hr 97.6 F-99 F 73-98 12-20 119-140/68-82 86-100 cor-rrr lungs clear dressings intact on back- will examine in am CBC, BMP 01/09/17 06:40 01/09/17 11:45 Microbiology 01/07/17 13:08 Blood - Peripheral Venous Blood Culture - Preliminary NO GROWTH OBTAINED AFTER 48 HOURS, INCUBATION TO CONTINUE FOR 3 DAYS. 01/07/17 13:08 Blood - Peripheral Venous Blood Culture - Preliminary NO GROWTH OBTAINED AFTER 48 HOURS, INCUBATION TO CONTINUE FOR 3 DAYS. 01/07/17 13:08 Back Gram Stain - Final 01/07/17 13:08 Back Wound Culture - Preliminary Presumptive Mssa (Pbp2a Neg) 01/07/17 13:08 Urine - Urine Clean Catch Urine Culture - Final a/p s/p drainage of multiple subcutaneous abscesses uncontrolled DM continue vanco/zosyn f/u cultures in am Problem List - Problems (1) Sepsis Code(s): A41.9 - SEPSIS, UNSPECIFIED ORGANISM Qualifiers: Sepsis type: sepsis due to unspecified organism Qualified Code(s): A41.9 - Sepsis, unspecified organism (2) Abscess Code(s): L02.91 - CUTANEOUS ABSCESS, UNSPECIFIED (3) Diabetes Code(s): E11.9 - TYPE 2 DIABETES MELLITUS WITHOUT COMPLICATIONS Qualifiers: Diabetes mellitus type: other specified (including LETICIA)
[2017-01-09] MEDS ORDERED: INSULIN DETEMIR 100 UNITS/ML MDV SQ ONE (18:51)
[2017-01-09] MEDS ORDERED: INSULIN SLIDING SCALE (NOVOLOG) 1 VIAL SQ SCH (19:00)
[2017-01-09] MEDS ORDERED: INSULIN (NOVOLOG) ASPART 100 UNITS/ML 10ML VIAL SQ ONE (19:01)
[2017-01-10] MEDS: INSULIN SLIDING SCALE (NOVOLOG) 1 VIAL SQ SCH ×5 (02:01→21:36)
[2017-01-10] MEDS: PIPERACILLIN/TAZOB 4.5 GM/100 ML PRE-DOCKED IVPB SCH (05:51)
[2017-01-10] MEDS: INSULIN DETEMIR 100 UNITS/ML MDV SQ SCH ×2 (06:36→17:57)
[2017-01-10 07:59] LABS: MCH 28.1 pg (25.7-33.7); MCHC 33.1 g/dl (32.0-35.9); MEAN PLT VOLUME 7.2 fl (7.5-11.1); PLATELET COUNT 314 K/MM3 (134-434); RDW 12.8 % (11.9-15.9); WHITE BLOOD COUNT 17.1 K/mm3 (4.0-10.0)
[2017-01-10 08:24] LABS: ALBUMIN 2.2 g/dl (3.4-5.0); ALK PHOS 186 U/L (45-117); ANION GAP 9 (8-16); BILIRUBIN,TOTAL 0.4 mg/dL (0.2-1.0); CALCIUM 7.8 mg/dL (8.5-10.1); CO2 27 mmol/L (21-32); CREATININE 0.8 mg/dL (0.7-1.3); GLUCOSE,RANDOM 200 mg/dL (74-106); SGOT/AST 25 U/L (15-37); SGPT/ALT 27 U/L (12-78); TOT PROT 6.6 g/dl (6.4-8.2)
[2017-01-10] MEDS ORDERED: PT OWN MED DRAWER 7, Y5N ONE (09:51)
[2017-01-10] MEDS: VANCOMYCIN 1,250 MG in DEXTROSE 5%-WATER - 250 ML IVPB SCH (09:52)
[2017-01-10 10:05] LABS: METAMYELOCYTE 1 % (0-2); PLATELET ESTIMATE ADEQUATE (NORMAL)
[2017-01-10] MEDS ORDERED: INSULIN (NOVOLOG) ASPART 100 UNITS/ML 10ML VIAL ONE (10:27)
--- NOTE | 2017-01-10 13:00 | PN ---
Teaching Attending Note Name of Resident: Ila Covington ATTENDING PHYSICIAN STATEMENT I saw and evaluated the patient. I reviewed the resident's note and discussed the case with the resident. I agree with the resident's findings and plan as documented. SUBJECTIVE: seen and evaluated at the bedside OBJECTIVE: two areas of induration and erthema draining pus on upper back ASSESSMENT AND PLAN: 51 year old man with newly diagnosed DM admitted for sepsis due to 2 abscesses on upper back abscesses -surgery consult appreciated s/p I+D in O.R. with large amount of puss removed -ID consult appreciated; currently on vanc/zosyn -cultures growing presumptive MSSA -will switch to oxacillin once culture data is finalized DM -pt is newly diagnosed as he does not follow with a PMD -Hb A1C of 12 -started on levemir 10 BID -cont sliding scale -as glucose has been difficult to control with silding scale and A1c is elevated will discharge pt on insulin
--- NOTE | 2017-01-10 13:58 | PN ---
Progress Note (short form) - Note Progress Note: doing better Vital Signs Period Temp Pulse Resp BP Sys/Cabrera Pulse Ox Last 24 Hr 97.6 F-98.9 F 73-98 18-18 111-136/57-71 96 cor-rrr lungs clear back wounds examined left upper back with open wound with purulent drainage and large area of induration, right upper back open wound with minimal drainage +induration CBC, BMP 01/10/17 06:00 01/10/17 06:00 Microbiology 01/08/17 15:45 Abscess Gram Stain - Final 01/08/17 15:45 Abscess Body Fluid Culture - Preliminary Presumptive Mssa (Pbp2a Neg) 01/08/17 15:45 Abscess Gram Stain - Final 01/08/17 15:45 Abscess Body Fluid Culture - Preliminary Presumptive Mssa (Pbp2a Neg) 01/07/17 13:08 Back Gram Stain - Final 01/07/17 13:08 Back Wound Culture - Preliminary Staphylococcus Aureus 01/07/17 13:08 Blood - Peripheral Venous Blood Culture - Preliminary NO GROWTH OBTAINED AFTER 48 HOURS, INCUBATION TO CONTINUE FOR 3 DAYS. 01/07/17 13:08 Blood - Peripheral Venous Blood Culture - Preliminary NO GROWTH OBTAINED AFTER 48 HOURS, INCUBATION TO CONTINUE FOR 3 DAYS. 01/07/17 13:08 Urine - Urine Clean Catch Urine Culture - Final a/p MSSA abscesses- switch to nafcillin continue local wound care not ready for discharge diabetes-sugars improving Problem List - Problems (1) Sepsis Code(s): A41.9 - SEPSIS, UNSPECIFIED ORGANISM Qualifiers: Sepsis type: sepsis due to unspecified organism Qualified Code(s): A41.9 - Sepsis, unspecified organism (2) Abscess Code(s): L02.91 - CUTANEOUS ABSCESS, UNSPECIFIED (3) Diabetes Code(s): E11.9 - TYPE 2 DIABETES MELLITUS WITHOUT COMPLICATIONS Qualifiers: Diabetes mellitus type: other specified (including LETICIA)
--- NOTE | 2017-01-10 14:42 | PN ---
Physical Exam: SUBJECTIVE: Patient seen and examined no events overnight, afebrile. Minor pain. OBJECTIVE: Vital Signs Period Temp Pulse Resp BP Sys/Cabrera Pulse Ox Last 24 Hr 97.6 F-98.8 F 73-88 18-18 111-134/57-70 96 GENERAL: The patient is awake, alert, and fully oriented, in no acute distress. HEAD: Normal with no signs of trauma. LUNGS: Breath sounds equal, clear to auscultation bilaterally, no wheezes, no crackles, no accessory muscle use. HEART: Regular rate and rhythm, S1, S2 without murmur, rub or gallop. ABDOMEN: Soft, nontender, nondistended, normoactive bowel sounds, no guarding, no rebound, no hepatosplenomegaly, no masses. EXTREMITIES: 2+ pulses, warm, well-perfused, no edema. NEUROLOGICAL: Cranial nerves II through XII grossly intact. Normal speech, gait not observed. PSYCH: Normal mood, normal affect. SKIN: Warm, dry, normal turgor, no rashes BACK: patient with 4abcesses s/p i&D wounds this am not draining, still with surrounding erythema and edema. CBC, BMP 01/10/17 06:00 01/10/17 06:00 Active Medications Generic Name Dose Route Start Last Admin Trade Name Freq PRN Reason Stop Dose Admin Acetaminophen 650 mg 01/08/17 16:09 Tylenol - PO Q4H PRN FEVER OR PAIN Acetaminophen 650 mg 01/08/17 17:01 01/09/17 12:04 Tylenol - PO 01/11/17 17:00 650 mg Q4H PRN Administration PAIN 6-10 Hydromorphone HCl 1 mg 01/08/17 16:37 Dilaudid Injection - IVPB Q4H PRN PAIN Sodium Chloride 1,000 mls @ 100 mls/hr 01/08/17 16:09 01/09/17 21:11 Normal Saline - IV 100 mls/hr ASDIR MONSERRAT Administration Nafcillin Sodium 2 gm/ Sodium 100 mls @ 100 mls/hr 01/10/17 14:50 Chloride IVPB Q4H-IV MONSERRAT Protocol Insulin Aspart 1 vial 01/10/17 13:00 Novolog Vial Sliding Scale - SQ ACHS MONSERRAT Protocol Insulin Detemir 10 units 01/10/17 07:00 01/10/17 06:36 Levemir Vial SQ 10 units BIDI MONSERRAT Administration Oxycodone HCl 10 mg 01/08/17 17:01 01/09/17 12:05 Roxicodone - PO 10 mg Q4H PRN Administration PAIN 6-10 ASSESSMENT/PLAN: 51 year old male with past medical history of borderline diabetes not on any medications, presents with two open lesion on back with surrounding erythema, edema, oozing pus, and pain, admitted for sepsis secondary to cellulitis. # Sepsis secondary to multiple abscess of the back; I&D POD2 -wbc count slightly trending down 17 today form 20; afebrile; -PE this am i did not appreciate any pus from wound still with erythema and some swelling; when I spoke to ID; there was pus with examination pus -IVF NS 100mls hr -dressing with kerlex in betadine daily -wound cx, MSSA+ -switch antibiotic to nafcillin # Newly diagnosed Diabetes type II; -levemir 20U bid -insulin SS; bgm q4h -hemoglobin A1C 11.9 #hypernatremia -resolved FEN: Fluids: LR 100mls/hr Electrolyes; wnl Diet: diabetic VTE prophylaxis: loxenox Disposition: IV antibiotics; surgery consult can d/c when wbc trend down; still with purulent pus from wound site as per ID; not ready for dc Visit type - Emergency Visit Emergency Visit: Yes ED Registration Date: 01/07/17 Care time: The patient presented to the Emergency Department on the above date and was hospitalized for further evaluation of their emergent condition. - New Patient This patient is new to me today: No - Critical Care Critical Care patient: No
[2017-01-10] MEDS: oxyCODONE HCL 5 MG TABLET PO PRN ×2 (15:09→20:10)
[2017-01-10] MEDS: NAFCILLIN - 2 GM in SODIUM CHLORIDE 100 ML IVPB SCH ×3 (17:34→21:36)
[2017-01-10] MEDS: SODIUM CHLORIDE 1,000 ML IV SCH (17:36)
--- NOTE | 2017-01-10 17:59 | PN ---
Progress Note (short form) - Note Progress Note: No acute events AVSS Wounds packed WBC 17 Continue antibiotics per ID Daily wound care Discharge home when WBC normalizes No further surgical intervention at this time Problem List - Problems (1) Cellulitis of back Code(s): L03.312 - CELLULITIS OF BACK [ANY PART EXCEPT BUTTOCK] (2) Diabetes Code(s): E11.9 - TYPE 2 DIABETES MELLITUS WITHOUT COMPLICATIONS Qualifiers: Diabetes mellitus type: other specified (including LETICIA) (3) Abscess of upper back excluding scapular region Code(s): L02.212 - CUTANEOUS ABSCESS OF BACK [ANY PART, EXCEPT BUTTOCK] (4) Abscess of lower back Code(s): L02.212 - CUTANEOUS ABSCESS OF BACK [ANY PART, EXCEPT BUTTOCK] (5) Leukocytosis Code(s): D72.829 - ELEVATED WHITE BLOOD CELL COUNT, UNSPECIFIED Qualifiers: Leukocytosis type: other Qualified Code(s): D72.828 - Other elevated white blood cell count
[2017-01-10] MEDS: ACETAMINOPHEN 325 MG TABLET (FP) PO PRN (20:11)
[2017-01-11] MEDS: NAFCILLIN - 2 GM in SODIUM CHLORIDE 100 ML IVPB SCH ×6 (01:38→21:09)
[2017-01-11] MEDS: SODIUM CHLORIDE 1,000 ML IV SCH ×2 (05:36→17:23)
[2017-01-11] MEDS: INSULIN DETEMIR 100 UNITS/ML MDV SQ SCH (06:36)
[2017-01-11] MEDS: INSULIN SLIDING SCALE (NOVOLOG) 1 VIAL SQ SCH ×4 (06:37→21:09)
[2017-01-11 08:01] LABS: MCH 27.7 pg (25.7-33.7); MCHC 32.9 g/dl (32.0-35.9); MEAN CELL VOLUME 84.2 fl (80-96); MEAN PLT VOLUME 6.6 fl (7.5-11.1); PLATELET COUNT 378 K/MM3 (134-434); WHITE BLOOD COUNT 17.9 K/mm3 (4.0-10.0)
[2017-01-11 08:32] LABS: CALCIUM 8.2 mg/dL (8.5-10.1)
[2017-01-11 08:33] LABS: CREATININE 0.8 mg/dL (0.7-1.3)
[2017-01-11 08:41] LABS: METAMYELOCYTE 1 % (0-2)
[2017-01-11 08:42] LABS: PLATELET ESTIMATE INCREASED (NORMAL); TOXIC GRANULATION 1+
--- NOTE | 2017-01-11 09:06 | PN ---
<Ila Covington - Last Filed: 01/11/17 10:58> Physical Exam: SUBJECTIVE: Patient seen and examined, temp 100.2 overnight. wbc still 17.9. Pain from wound controlled. OBJECTIVE: Vital Signs Period Temp Pulse Resp BP Sys/Cabrera Pulse Ox Last 24 Hr 98.5 F-100.3 F 84-91 18-20 124-134/65-77 96 GENERAL: The patient is awake, alert, and fully oriented, in no acute distress. HEAD: Normal with no signs of trauma. NECK: Trachea midline, full range of motion, supple. LUNGS: Breath sounds equal, clear to auscultation bilaterally, no wheezes, no crackles, no accessory muscle use. HEART: Regular rate and rhythm, S1, S2 without murmur, rub or gallop. ABDOMEN: Soft, nontender, nondistended, normoactive bowel sounds, no guarding, no rebound, no hepatosplenomegaly, no masses. EXTREMITIES: 2+ pulses, warm, well-perfused, no edema. NEUROLOGICAL: Cranial nerves II through XII grossly intact. Normal speech, gait not observed. PSYCH: Normal mood, normal affect. SKIN: Warm, dry, normal turgor, erythema of right flan, no swelling BACK: b/l wound s/p debridement still with draining yellow discharge, wound border becoming black on the right side, still with surrounding edema and erythema Laboratory Results - last 24 hr 01/10/17 01/10/17 01/10/17 06:00 10:24 17:52 WBC RBC Hgb Hct MCV MCHC RDW Plt Count MPV Neutrophils % 79.0 Lymphocytes % 10.0 D Monocytes % 7.0 D Eosinophils % 2.0 D Basophils % 1.0 D Band Neutrophils Metamyelocytes 1 Myelocytes Differential Comment Manual diff done Toxic Granulation Platelet Estimate Adequate Platelet Comment Sodium Potassium Chloride Carbon Dioxide Anion Gap BUN Creatinine POC Glucometer 329 267 Random Glucose Calcium 01/10/17 01/11/17 01/11/17 21:32 05:39 07:30 WBC 17.9 H RBC 4.56 Hgb 12.6 Hct 38.4 MCV 84.2 MCHC 32.9 RDW 13.0 Plt Count 378 D MPV 6.6 L Neutrophils % 74.0 Lymphocytes % 16.0 D Monocytes % 2.0 L Eosinophils % 1.0 Basophils % Band Neutrophils 4.0 D Metamyelocytes 1 Myelocytes 2 Differential Comment Toxic Granulation 1+ Platelet Estimate Increased Platelet Comment No clumping noted Sodium Potassium Chloride Carbon Dioxide Anion Gap BUN Creatinine POC Glucometer 247 163 Random Glucose Calcium 01/11/17 07:30 WBC RBC Hgb Hct MCV MCHC RDW Plt Count MPV Neutrophils % Lymphocytes % Monocytes % Eosinophils % Basophils % Band Neutrophils Metamyelocytes Myelocytes Differential Comment Toxic Granulation Platelet Estimate Platelet Comment Sodium 136 Potassium 4.2 Chloride 101 Carbon Dioxide 26 Anion Gap 9 BUN 11 D Creatinine 0.8 POC Glucometer Random Glucose 173 H Calcium 8.2 L Active Medications Generic Name Dose Route Start Last Admin Trade Name Freq PRN Reason Stop Dose Admin Acetaminophen 650 mg 01/08/17 16:09 Tylenol - PO Q4H PRN FEVER OR PAIN Acetaminophen 650 mg 01/08/17 17:01 01/10/17 20:11 Tylenol - PO 01/11/17 17:00 650 mg Q4H PRN Administration PAIN 6-10 Hydromorphone HCl 1 mg 01/08/17 16:37 Dilaudid Injection - IVPB Q4H PRN PAIN Sodium Chloride 1,000 mls @ 100 mls/hr 01/08/17 16:09 01/11/17 05:36 Normal Saline - IV 100 mls/hr ASDIR MONSERRAT Administration Nafcillin Sodium 2 gm/ Sodium 100 mls @ 100 mls/hr 01/10/17 14:50 01/11/17 05: 36 Chloride IVPB 100 mls/hr Q4H-IV MONSERRAT Administration Protocol Insulin Aspart 1 vial 01/10/17 13:00 01/11/17 06:37 Novolog Vial Sliding Scale - SQ 2 units ACHS MONSERRAT Administration Protocol Insulin Detemir 10 units 01/10/17 07:00 01/11/17 06:36 Levemir Vial SQ 10 units BIDI MONSERRAT Administration Oxycodone HCl 10 mg 01/08/17 17:01 01/10/17 20:10 Roxicodone - PO 10 mg Q4H PRN Administration PAIN 6-10 ASSESSMENT/PLAN: 51 year old male with past medical history of borderline diabetes not on any medications, presents with two open lesions on back with surrounding erythema, edema, purulent discharge, pain, admitted for sepsis secondary to abscesses. # Sepsis secondary to multiple abscess of the back; I&D POD2 -wbc count 17.9 today from 17.1 yesterday; temp 100.2 overnight -PE this am; wounds with black edges; surrounding erythema and +yellow draining fluid -IVF NS 100mls hr -dressing with kerlex in betadine daily -wound cx, MSSA+ -IV nafcillin q4h -surgery will re assess today # Newly diagnosed Diabetes type II; -increased levemir to 22U bid -insulin SS; bgm q4h -hemoglobin A1C 11.9 #hypernatremia -resolved FEN: Fluids: ns 100mls hr Electrolyes; wnl Diet: diabetic VTE prophylaxis: loxenox Disposition: IV antibiotics; still with purulent pus from wound site as per ID; surgery to reassess wound today Visit type - Emergency Visit Emergency Visit: Yes ED Registration Date: 01/07/17 Care time: The patient presented to the Emergency Department on the above date and was hospitalized for further evaluation of their emergent condition. - New Patient This patient is new to me today: No - Critical Care Critical Care patient: No <Segundo Bunn - Last Filed: 01/11/17 11:36> Physical Exam: ATTENDING PHYSICIAN STATEMENT I saw and evaluated the patient. I reviewed the resident's note and discussed the case with the resident. I agree with the resident's findings and plan as documented. SUBJECTIVE: seen and evaluated at the bedside OBJECTIVE: two areas of induration and erthema draining pus on upper back ASSESSMENT AND PLAN: 51 year old man with newly diagnosed DM admitted for sepsis due to 2 abscesses on upper back abscesses -surgery consult appreciated s/p I+D in O.R. with large amount of puss removed -ID consult appreciated; currently on vanc/zosyn -cultures growing presumptive MSSA -now on Nafcillin -WBC still elevated and wound still expressing puss; follow up with surgical team DM -pt is newly diagnosed as he does not follow with a PMD -Hb A1C of 12 -started on levemir 10 BID -cont sliding scale -as glucose has been difficult to control with silding scale and A1c is elevated will discharge pt on insulin
[2017-01-11] MEDS ORDERED: INSULIN DETEMIR 100 UNITS/ML MDV SQ SCH ×2 (09:12→16:30)
--- NOTE | 2017-01-11 10:39 | PN ---
Progress Note (short form) - Note Progress Note: POD#3 Pt with complaints of pain at the incision sites. Vital Signs Period Temp Pulse Resp BP Sys/Cabrera Pulse Ox Last 24 Hr 98.5 F-100.3 F 84-91 18-20 124-134/65-77 96 PE: upper back: left wound with necrotic tissue and drainage. No foul odor. No erythema. Right wound with necrotic tissue(less than left) and drainage. No foul odor. No erythema. CBC, BMP 01/11/17 07:30 01/11/17 07:30 A/P: 51 yo male s/p b/l upper shoulder debridement WBC remains elevated and is having low grade temp Will plan for further debridement on Friday Continue IV abx, MSSA on body fluid culture Increase frequency of dressing changes to Q12h D/w Dr. Moise
[2017-01-11] MEDS: oxyCODONE HCL 5 MG TABLET PO PRN (13:05)
[2017-01-11] MEDS: ACETAMINOPHEN 325 MG TABLET (FP) PO PRN (13:24)
--- NOTE | 2017-01-11 14:36 | PN ---
Progress Note (short form) - Note Progress Note: low grade temp overnight d/w resident who has contacted surgery Vital Signs Period Temp Pulse Resp BP Sys/Cabrera Pulse Ox Last 24 Hr 98.5 F-100.3 F 84-96 18-20 124-143/65-77 96 dressing intact- surgery note reviewed CBC, BMP 01/11/17 07:30 01/11/17 07:30 Microbiology 01/08/17 15:45 Abscess Gram Stain - Final 01/08/17 15:45 Abscess Body Fluid Culture - Final Presumptive Mssa (Pbp2a Neg) 01/08/17 15:45 Abscess Anaerobic Culture - Final 01/08/17 15:45 Abscess Gram Stain - Final 01/08/17 15:45 Abscess Body Fluid Culture - Final Staphylococcus Aureus 01/08/17 15:45 Abscess Anaerobic Culture - Final 01/07/17 13:08 Blood - Peripheral Venous Blood Culture - Preliminary NO GROWTH OBTAINED AFTER 72 HOURS, INCUBATION TO CONTINUE FOR 2 DAYS. 01/07/17 13:08 Blood - Peripheral Venous Blood Culture - Preliminary NO GROWTH OBTAINED AFTER 72 HOURS, INCUBATION TO CONTINUE FOR 2 DAYS. 01/07/17 13:08 Back Gram Stain - Final 01/07/17 13:08 Back Wound Culture - Final Staphylococcus Aureus 01/07/17 13:08 Urine - Urine Clean Catch Urine Culture - Final a/p MSSA abscesses- continue nafcillin continue local wound care agree with plans for further debridement diabetes-sugars improving Problem List - Problems (1) Sepsis Code(s): A41.9 - SEPSIS, UNSPECIFIED ORGANISM Qualifiers: Sepsis type: sepsis due to unspecified organism Qualified Code(s): A41.9 - Sepsis, unspecified organism (2) Abscess Code(s): L02.91 - CUTANEOUS ABSCESS, UNSPECIFIED (3) Diabetes Code(s): E11.9 - TYPE 2 DIABETES MELLITUS WITHOUT COMPLICATIONS Qualifiers: Diabetes mellitus type: other specified (including LETICIA)
[2017-01-11] MEDS ORDERED: INSULIN (NOVOLOG) ASPART 100 UNITS/ML 10ML VIAL ONE (20:53)
[2017-01-12] MEDS: NAFCILLIN - 2 GM in SODIUM CHLORIDE 100 ML IVPB SCH ×6 (01:26→22:56)
[2017-01-12] MEDS: SODIUM CHLORIDE 1,000 ML IV SCH (01:33)
[2017-01-12] MEDS: INSULIN SLIDING SCALE (NOVOLOG) 1 VIAL SQ SCH ×4 (06:04→22:56)
[2017-01-12 08:24] LABS: MCH 28.4 pg (25.7-33.7); MCHC 33.7 g/dl (32.0-35.9); MEAN CELL VOLUME 84.2 fl (80-96); MEAN PLT VOLUME 6.7 fl (7.5-11.1); PLATELET COUNT 300 K/MM3 (134-434); RDW 12.8 % (11.9-15.9)
--- NOTE | 2017-01-12 08:54 | PN ---
Progress Note, Physician - Current Medication List Current Medications: Active Medications Acetaminophen (Tylenol -) 650 mg PO Q4H PRN PRN Reason: FEVER OR PAIN Nafcillin Sodium 2 gm/ Sodium (Chloride) 100 mls @ 100 mls/hr IVPB Q4H-IV MONSERRAT PRN Reason: Protocol Last Admin: 01/12/17 06:02 Dose: 100 mls/hr Insulin Aspart (Novolog Vial Sliding Scale -) 1 vial SQ ACHS MONSERRAT PRN Reason: Protocol Last Admin: 01/12/17 06:04 Dose: 2 units Insulin Detemir (Levemir Vial) 20 units SQ ONCE ONE Stop: 01/12/17 08:46 - Objective Vital Signs: Vital Signs Temperature 98.3 F 01/12/17 06:00 Pulse Rate 88 01/12/17 06:00 Respiratory Rate 20 01/12/17 06:00 Blood Pressure 133/75 01/12/17 06:00 O2 Sat by Pulse Oximetry (%) 96 01/11/17 22:00 Constitutional: Yes: Well Nourished, No Distress, Calm Eyes: Yes: WNL, Conjunctiva Clear HENT: Yes: WNL, Atraumatic, Normocephalic Neck: Yes: WNL, Supple, Trachea Midline Cardiovascular: Yes: WNL, Regular Rate and Rhythm Respiratory: Yes: WNL, Regular, CTA Bilaterally Gastrointestinal: Yes: WNL, Normal Bowel Sounds Musculoskeletal: Yes: Other (wounds covered in surgical dressing) Extremities: Yes: WNL Edema: No Integumentary: Yes: WNL Neurological: Yes: WNL, Alert, Oriented ...Motor Strength: WNL Psychiatric: Yes: WNL Labs: CBC, BMP 01/12/17 07:00 INR, PTT INR 1.30 (0.82-1.09) H 01/07/17 13:08 Impression/Plan Impression/Plan: 51 year old man with newly diagnosed DM admitted for sepsis due to 2 abscesses on upper back abscesses -surgery consult appreciated s/p I+D in O.R. with large amount of puss removed -ID consult appreciated; was on vanc/zosyn -cultures growing presumptive MSSA -now on Nafcillin -WBC now improving but wound still expressing puss; for repeat debridement by surgical team DM -pt is newly diagnosed as he does not follow with a PMD -Hb A1C of 12 -started on levemir 10 BID and no improvement so increase to 20 -only give 10 tonight as pt will be NPO -cont sliding scale -as glucose has been difficult to control with silding scale and A1c is elevated will discharge pt on insulin Visit type - Emergency Visit Emergency Visit: Yes ED Registration Date: 01/07/17 Care time: The patient presented to the Emergency Department on the above date and was hospitalized for further evaluation of their emergent condition. - New Patient This patient is new to me today: No - Critical Care Critical Care patient: No
[2017-01-12] MEDS ORDERED: oxyCODONE HCL 5 MG TABLET PO PRN (08:58)
[2017-01-12] MEDS ORDERED: DOCUSATE SODIUM 100 MG CAPSULE (FP) PO PRN (08:58)
[2017-01-12] MEDS ORDERED: INSULIN DETEMIR 100 UNITS/ML MDV SQ ONE ×3 (09:00→22:00)
[2017-01-12 09:03] LABS: CALCIUM 8.1 mg/dL (8.5-10.1); CREATININE 0.7 mg/dL (0.7-1.3)
[2017-01-12] MEDS ORDERED: INSULIN (NOVOLOG) ASPART 100 UNITS/ML 10ML VIAL ONE (11:14)
[2017-01-12 15:02] LABS: METAMYELOCYTE 2 % (0-2); PLATELET ESTIMATE ADEQUATE (NORMAL)
[2017-01-12] MEDS ORDERED: PT OWN MED DRAWER 7, Y5N ONE (22:29)
[2017-01-13] MEDS ORDERED: ceFAZolin SODIUM 1 GM VIAL IVPB ONE
[2017-01-13] MEDS: NAFCILLIN - 2 GM in SODIUM CHLORIDE 100 ML IVPB SCH ×6 (02:30→22:15)
[2017-01-13] MEDS ORDERED: PT OWN MED DRAWER 7, Y5N ONE ×4 (05:40→22:03)
[2017-01-13] MEDS: INSULIN SLIDING SCALE (NOVOLOG) 1 VIAL SQ SCH ×4 (06:05→22:23)
[2017-01-13 06:53] LABS: MCH 28.4 pg (25.7-33.7); MCHC 33.5 g/dl (32.0-35.9); MEAN CELL VOLUME 84.8 fl (80-96); MEAN PLT VOLUME 6.6 fl (7.5-11.1); PLATELET COUNT 349 K/MM3 (134-434); RDW 12.9 % (11.9-15.9); WHITE BLOOD COUNT 13.5 K/mm3 (4.0-10.0)
[2017-01-13] MEDS ORDERED: MIDAZOLAM HCL 2 MG/2 ML SINGLE DOSE VIAL ONE ×2 (09:52)
[2017-01-13] MEDS ORDERED: NAFCILLIN NA 2 GM VIAL IVPB ONE (10:03)
[2017-01-13] MEDS ORDERED: LIDOCAINE 1%/EPI 1:100000 (50 ML MULTI DOSE VIAL) ONE (10:17)
[2017-01-13] MEDS ORDERED: BACITRACIN 50,000 UNITS VIAL TP ONE (10:18)
[2017-01-13] MEDS ORDERED: BUPIVACAINE HCL/PF 0.5% (5MG/ML) 10 ML VIAL IJ ONE (10:18)
[2017-01-13] MEDS ORDERED: LIDOCAINE 1%/EPI 1:100000 (20 ML MULTI DOSE VIAL) INF ONE (10:18)
[2017-01-13] MEDS ORDERED: ONDANSETRON 4 MG/2 ML VIAL IVPUSH PRN ×2 (11:04→13:14)
[2017-01-13] MEDS ORDERED: LACTATED RINGERS SOLUTION 1,000 ML IV SCH ×3 (11:15→15:25)
[2017-01-13 11:55] LABS: METAMYELOCYTE 1 % (0-2); PLATELET ESTIMATE ADEQUATE (NORMAL)
--- NOTE | 2017-01-13 12:05 | OP ---
Operative Note - Note: Operative Date: 01/13/17 Pre-Operative Diagnosis: Necrotic upper back wounds Operation: Excisional debridement and pulse irrigation washout of bilateral upper back wounds Post-Operative Diagnosis: Same as Pre-op Surgeon: Gamaliel Moise Anesthesia: Local, MAC Specimens Removed: Necrotic tissue Estimated Blood Loss (mls): 5 Operative Report Dictated: Yes
[2017-01-13] MEDS ORDERED: DOCUSATE SODIUM 100 MG CAPSULE (FP) PO PRN (13:14)
--- NOTE | 2017-01-13 15:26 | PN ---
Progress Note, Physician - Current Medication List Current Medications: Active Medications Acetaminophen (Tylenol -) 650 mg PO Q4H PRN PRN Reason: FEVER OR PAIN Docusate Sodium (Colace -) 100 mg PO BID PRN PRN Reason: CONSTIPATION Lactated Ringer's (Lactated Ringers Solution) 1,000 mls @ 125 mls/hr IV ASDIR MONSERRAT Last Admin: 01/13/17 14:08 Dose: 125 mls/hr Nafcillin Sodium 2 gm/ Sodium (Chloride) 100 mls @ 100 mls/hr IVPB Q4H-IV MONSERRAT PRN Reason: Protocol Last Admin: 01/13/17 14:08 Dose: 100 mls/hr Insulin Aspart (Novolog Vial Sliding Scale -) 1 vial SQ ACHS MONSERRAT PRN Reason: Protocol Insulin Detemir (Levemir Vial) 25 units SQ BID@0700,2200 MONSERRAT Ondansetron HCl (Zofran Injection) 4 mg IVPUSH Q6H PRN PRN Reason: NAUSEA AND/OR VOMITING Stop: 01/13/17 17:05 Oxycodone HCl (Roxicodone -) 5 mg PO Q4H PRN PRN Reason: PAIN - Objective Vital Signs: Vital Signs Temperature 98.9 F 01/13/17 14:14 Pulse Rate 92 H 01/13/17 14:14 Respiratory Rate 18 01/13/17 14:14 Blood Pressure 137/77 01/13/17 14:14 O2 Sat by Pulse Oximetry (%) 95 01/13/17 12:35 Constitutional: Yes: Well Nourished, No Distress, Calm Eyes: Yes: WNL, Conjunctiva Clear HENT: Yes: WNL, Atraumatic, Normocephalic Neck: Yes: WNL, Supple, Trachea Midline Cardiovascular: Yes: WNL, Regular Rate and Rhythm Respiratory: Yes: WNL, Regular, CTA Bilaterally Gastrointestinal: Yes: WNL, Normal Bowel Sounds Musculoskeletal: Yes: Other (two large ascesses with packing and abdominal pad in place) Extremities: Yes: WNL Edema: No Integumentary: Yes: WNL Neurological: Yes: WNL, Alert, Oriented ...Motor Strength: WNL Psychiatric: Yes: WNL Labs: CBC, BMP 01/13/17 06:15 01/12/17 07:00 INR, PTT INR 1.30 (0.82-1.09) H 01/07/17 13:08 Impression/Plan Impression/Plan: 51 year old man with newly diagnosed DM admitted for sepsis due to 2 abscesses on upper back abscesses -surgery consult appreciated s/p I+D in O.R. with large amount of puss removed -ID consult appreciated; was on vanc/zosyn -cultures growing presumptive MSSA -now on Nafcillin -s/p repeat debridement by surgical team 01/13 DM -pt is newly diagnosed as he does not follow with a PMD -Hb A1C of 12 -cont sliding scale -as glucose has been difficult to control with silding scale and A1c is elevated will discharge pt on insulin Visit type - Emergency Visit Emergency Visit: Yes ED Registration Date: 01/07/17 Care time: The patient presented to the Emergency Department on the above date and was hospitalized for further evaluation of their emergent condition. - New Patient This patient is new to me today: No - Critical Care Critical Care patient: No
--- NOTE | 2017-01-13 15:31 | PN ---
Physical Exam: SUBJECTIVE: Patient seen and examined post op surgery wound re debridement today for multiple infected wound abscesses. Complains of wound pain andrea with pulling back of the tape. No other associated symptoms. Afebrile. OBJECTIVE: Vital Signs Period Temp Pulse Resp BP Sys/Cabrera Pulse Ox Last 24 Hr 98.2 F-99.4 F 76-92 16-20 116-144/69-84 95-100 GENERAL: The patient is awake, alert, and fully oriented, in no acute distress. HEAD: Normal with no signs of trauma. EYES: PERRL, extraocular movements intact, sclera anicteric, conjunctiva clear. No ptosis. ENT: Ears normal, nares patent, oropharynx clear without exudates, moist mucous membranes. NECK: Trachea midline, full range of motion, supple. LUNGS: Breath sounds equal, clear to auscultation bilaterally, no wheezes, no crackles, no accessory muscle use. HEART: Regular rate and rhythm, S1, S2 without murmur, rub or gallop. ABDOMEN: Soft, nontender, nondistended, normoactive bowel sounds, no guarding, no rebound, no hepatosplenomegaly, no masses. EXTREMITIES: 2+ pulses, warm, well-perfused, no edema. NEUROLOGICAL: Cranial nerves II through XII grossly intact. Normal speech, gait not observed. PSYCH: Normal mood, normal affect. SKIN: Warm, dry, normal turgor, no rashes or lesions noted BACK: bilateral open wound s/p debridment of abscesses , packed , no drainage, no puss; significant swelling around borders , with erythema Laboratory Results - last 24 hr 01/12/17 01/12/17 01/13/17 16:27 22:55 06:04 WBC RBC Hgb Hct MCV MCHC RDW Plt Count MPV Neutrophils % Lymphocytes % Monocytes % Eosinophils % Band Neutrophils Metamyelocytes Myelocytes Differential Comment Platelet Estimate POC Glucometer 278 273 165 01/13/17 01/13/17 06:15 11:50 WBC 13.5 H RBC 4.56 Hgb 12.9 Hct 38.7 MCV 84.8 MCHC 33.5 RDW 12.9 Plt Count 349 MPV 6.6 L Neutrophils % 72.0 Lymphocytes % 19.0 D Monocytes % 3.0 L D Eosinophils % 2.0 D Band Neutrophils 1.0 D Metamyelocytes 1 D Myelocytes 2 D Differential Comment Manual diff done Platelet Estimate Adequate POC Glucometer 192 Active Medications Generic Name Dose Route Start Last Admin Trade Name Freq PRN Reason Stop Dose Admin Acetaminophen 650 mg 01/13/17 13:14 Tylenol - PO Q4H PRN FEVER OR PAIN Docusate Sodium 100 mg 01/13/17 13:14 Colace - PO BID PRN CONSTIPATION Nafcillin Sodium 2 gm/ Sodium 100 mls @ 100 mls/hr 01/13/17 14:00 01/13/17 14: 08 Chloride IVPB 100 mls/hr Q4H-IV MONSERRAT Administration Protocol Lactated Ringer's 1,000 mls @ 100 mls/hr 01/13/17 15:25 Lactated Ringers Solution IV ASDIR MONSERRAT Insulin Aspart 1 vial 01/13/17 16:30 Novolog Vial Sliding Scale - SQ ACHS MONSERRAT Protocol Insulin Detemir 25 units 01/13/17 22:00 Levemir Vial SQ BID@0700,2200 MONSERRAT Ondansetron HCl 4 mg 01/13/17 13:14 Zofran Injection IVPUSH 01/13/17 17:05 Q6H PRN NAUSEA AND/OR VOMITING Oxycodone HCl 5 mg 01/13/17 13:14 Roxicodone - PO Q4H PRN PAIN ASSESSMENT/PLAN: 51 year old male with past medical history of borderline diabetes not on any medications, presents with two open lesions on back with surrounding erythema, edema, purulent discharge, pain, admitted for sepsis secondary to abscesses. # Sepsis secondary to multiple abscess of the back; I&D today; (first debridement 01/08) -wbc count trending down -s/p debridement today -IVF LR -dressing with kerlex packing/ betadine daily -wound cx, MSSA+ -IV nafcillin q4h -surgery/ID following # Newly diagnosed Diabetes type II; -increased levemir to 25U bid -insulin SS; bgm q4h -hemoglobin A1C 11.9 #hypernatremia -resolved FEN: Fluids: LR 100mls hr Electrolyes; wnl Diet: diabetic VTE prophylaxis: loxenox Disposition: IV antibiotics; wound care Visit type - Emergency Visit Emergency Visit: Yes ED Registration Date: 01/07/17 Care time: The patient presented to the Emergency Department on the above date and was hospitalized for further evaluation of their emergent condition. - New Patient This patient is new to me today: No - Critical Care Critical Care patient: No
[2017-01-13 17:28] LABS: CALCIUM 8.6 mg/dL (8.5-10.1)
[2017-01-13] MEDS: ACETAMINOPHEN 325 MG TABLET (FP) PO PRN (22:13)
[2017-01-13] MEDS: INSULIN DETEMIR 100 UNITS/ML MDV SQ SCH (22:20)
[2017-01-14] MEDS ORDERED: PT OWN MED DRAWER 7, Y5N ONE ×7 (03:10→21:36)
[2017-01-14] MEDS: NAFCILLIN - 2 GM in SODIUM CHLORIDE 100 ML IVPB SCH ×6 (03:12→21:42)
[2017-01-14] MEDS: INSULIN DETEMIR 100 UNITS/ML MDV SQ SCH ×2 (06:40→21:46)
[2017-01-14] MEDS: INSULIN SLIDING SCALE (NOVOLOG) 1 VIAL SQ SCH ×4 (06:42→21:52)
[2017-01-14 07:40] LABS: MCH 28.2 pg (25.7-33.7); MCHC 33.3 g/dl (32.0-35.9); MEAN CELL VOLUME 84.6 fl (80-96); MEAN PLT VOLUME 6.7 fl (7.5-11.1); PLATELET COUNT 327 K/MM3 (134-434); RDW 12.7 % (11.9-15.9); WHITE BLOOD COUNT 13.4 K/mm3 (4.0-10.0)
[2017-01-14] MEDS: oxyCODONE HCL 5 MG TABLET PO PRN ×2 (08:39→15:40)
[2017-01-14] MEDS: ACETAMINOPHEN 325 MG TABLET (FP) PO PRN ×3 (08:40→20:00)
[2017-01-14 09:00] LABS: METAMYELOCYTE 2 % (0-2)
[2017-01-14 09:01] LABS: PLATELET ESTIMATE ADEQUATE (NORMAL)
--- NOTE | 2017-01-14 11:18 | PATH ---
Surgical Pathology Report Patient Name: JEAN CLAUDE ANGLIN [facility]. Rec. #: [id number] /Age/Gender: 1965 (Age: 51) / M Account: [id number] Location: [address] [place] [address]/[facility] Taken: 01/13/2017 Received: 01/13/2017 Reported: 01/14/2017 Physicians: Gamaliel Moise M.D. Specimen(s) Received A: RIGHT UPPER BACK DEBRIDED NECROTIC TISSUE B: LEFT UPPER BACK DEBRIDED NECROTIC TISSUE Clinical History Necrotic bilateral upper back wound Final Diagnosis A. SOFT TISSUE, RIGHT UPPER BACK, DEBRIDEMENT: GANGRENOUS NECROSIS. B. SOFT TISSUE, LEFT UPPER BACK, DEBRIDEMENT: GANGRENOUS NECROSIS. Electronically Signed Carl Araiza M.D. Gross Description A. Received in formalin labeled "right back necrotic tissue," is a 4.0 x 3.0 x 0.8 cm aggregate of [place], necrotic portions of soft tissue. Manager Engagement sections are submitted in one cassette. B. Received in formalin labeled "left upper back necrotic tissue," is a 5.0 x 2.7 x 0.8 cm aggregate of [place], necrotic portions of soft tissue. Manager Engagement sections are submitted in one cassette. /01/13/2017 saudi01/13/2017
--- NOTE | 2017-01-14 12:01 | OP ---
DATE OF OPERATION: 01/13/2017 SURGEON: Elisabet Moise MD PREOPERATIVE DIAGNOSIS: Necrotic bilateral upper back wounds. POSTOPERATIVE DIAGNOSIS: Necrotic bilateral upper back wounds. PROCEDURE: Excisional debridement of bilateral upper back wounds with pulse irrigation washout. SPECIMEN: Necrotic tissue. ESTIMATED BLOOD LOSS: 5 mL. ANESTHESIA: MAC/local. REASON FOR PROCEDURE: This is a 51-year-old gentleman who had incision and drainage of multiple back abscesses with copious purulent drainage noted. These were packed and treated with antibiotics. He was treated with daily wound care by the nursing staff. His white count remained elevated, and it was noted by the nursing staff that he had persistent necrotic debris in his bilateral upper back wounds. Because of this, he was consented for excisional debridement of his bilateral upper back wounds and washout. The risks and benefits of the procedure were explained. These included bleeding, infection, injury to surrounding structures including vessel injury, nerve injury, muscle injury, as well as prolonged wound healing. He understood and signed informed consent. DESCRIPTION OF PROCEDURE: Patient was placed prone on the operating table. He underwent MAC by Anesthesia. The area was prepped and draped with Betadine in the usual sterile fashion. Time-out was performed. Local anesthesia with epinephrine was injected in both bilateral upper back wounds. Using both a 15-blade scalpel as well as the Bovie electrocautery, the necrotic debris, which was noted, was excised until healthy tissue seen. Both wounds were irrigated extensively with pulse irrigation. The necrotic tissue was sent off as specimen. Hemostasis was achieved using electrocautery. The wounds were noted to be clean at the end of the procedure. The wounds were packed with Kerlix soaked in Betadine and dressings were applied. Patient tolerated the procedure and was transferred to the recovery room in stable condition. ELISABET MOISE M.D. [id number]
--- NOTE | 2017-01-14 12:32 | PN ---
Progress Note (short form) - Note Progress Note: no fevers s/p debridement yesterday Vital Signs Vital Signs Period Temp Pulse Resp BP Sys/Cabrera Pulse Ox Last 24 Hr 98.2 F-99.6 F 80-94 16-20 130-148/74-81 95 cor-rrr lungs clear post op dressings intact abd soft,nt ext no edema CBC, BMP 01/14/17 06:35 01/13/17 16:00 Microbiology 01/07/17 13:08 Blood - Peripheral Venous Blood Culture - Final NO GROWTH AFTER 5 DAYS INCUBATION 01/07/17 13:08 Blood - Peripheral Venous Blood Culture - Final NO GROWTH AFTER 5 DAYS INCUBATION 01/08/17 15:45 Abscess Gram Stain - Final 01/08/17 15:45 Abscess Body Fluid Culture - Final Presumptive Mssa (Pbp2a Neg) 01/08/17 15:45 Abscess Anaerobic Culture - Final 01/08/17 15:45 Abscess Gram Stain - Final 01/08/17 15:45 Abscess Body Fluid Culture - Final Staphylococcus Aureus 01/08/17 15:45 Abscess Anaerobic Culture - Final 01/07/17 13:08 Back Gram Stain - Final 01/07/17 13:08 Back Wound Culture - Final Staphylococcus Aureus 01/07/17 13:08 Urine - Urine Clean Catch Urine Culture - Final a/p MSSA abscesses- continue nafcillin continue local wound care s/p debridement #2 check esr/crp diabetes-sugars improving Problem List - Problems (1) Sepsis Code(s): A41.9 - SEPSIS, UNSPECIFIED ORGANISM Qualifiers: Sepsis type: sepsis due to unspecified organism Qualified Code(s): A41.9 - Sepsis, unspecified organism (2) Abscess Code(s): L02.91 - CUTANEOUS ABSCESS, UNSPECIFIED (3) Diabetes Code(s): E11.9 - TYPE 2 DIABETES MELLITUS WITHOUT COMPLICATIONS Qualifiers: Diabetes mellitus type: other specified (including LETICIA)
--- NOTE | 2017-01-14 14:05 | PN ---
Physical Exam: SUBJECTIVE: Patient seen and examined, still in significant amount of pain. Patient states it is worse with peeling tape. Please be advised to use paper tape. Did not get good sleep last night due to pain. OBJECTIVE: Vital Signs Period Temp Pulse Resp BP Sys/Cabrera Pulse Ox Last 24 Hr 98.4 F-99.6 F 84-94 18-20 130-148/77-81 96 GENERAL: The patient is awake, alert, and fully oriented, in no acute distress. HEAD: Normal with no signs of trauma. EYES: PERRL, extraocular movements intact, sclera anicteric, conjunctiva clear. No ptosis. ENT: Ears normal, nares patent, oropharynx clear without exudates, moist mucous membranes. NECK: Trachea midline, full range of motion, supple. LUNGS: Breath sounds equal, clear to auscultation bilaterally, no wheezes, no crackles, no accessory muscle use. HEART: Regular rate and rhythm, S1, S2 without murmur, rub or gallop. ABDOMEN: Soft, nontender, nondistended, normoactive bowel sounds, no guarding, no rebound, no hepatosplenomegaly, no masses. EXTREMITIES: 2+ pulses, warm, well-perfused, no edema. NEUROLOGICAL: Cranial nerves II through XII grossly intact. Normal speech, gait not observed. PSYCH: Normal mood, normal affect. SKIN: Warm, dry, normal turgr BACK: large area open wound s/p debridement of abscess x2; packing, no puss, still with surrounding erythema and edema; Laboratory Results - last 24 hr 01/13/17 01/13/17 01/13/17 16:00 16:52 22:20 WBC RBC Hgb Hct MCV MCHC RDW Plt Count MPV Neutrophils % Lymphocytes % Monocytes % Eosinophils % Basophils % Metamyelocytes Differential Comment Platelet Estimate Sodium 133 L Potassium 5.1 Chloride 95 L Carbon Dioxide 26 Anion Gap 12 BUN 13 D Creatinine 1.0 D POC Glucometer 373 343 Random Glucose 362 H* D Calcium 8.6 01/14/17 01/14/17 01/14/17 05:47 06:35 11:19 WBC 13.4 H RBC 4.15 Hgb 11.7 Hct 35.1 L MCV 84.6 MCHC 33.3 RDW 12.7 Plt Count 327 MPV 6.7 L Neutrophils % 73.0 Lymphocytes % 16.0 Monocytes % 4.0 Eosinophils % 4.0 D Basophils % 1.0 D Metamyelocytes 2 D Differential Comment Manual diff done Platelet Estimate Adequate Sodium Potassium Chloride Carbon Dioxide Anion Gap BUN Creatinine POC Glucometer 175 272 Random Glucose Calcium Active Medications Generic Name Dose Route Start Last Admin Trade Name Freq PRN Reason Stop Dose Admin Acetaminophen 650 mg 01/13/17 13:14 01/14/17 08:40 Tylenol - PO 650 mg Q4H PRN Administration FEVER OR PAIN Docusate Sodium 100 mg 01/13/17 13:14 Colace - PO BID PRN CONSTIPATION Nafcillin Sodium 2 gm/ Sodium 100 mls @ 100 mls/hr 01/13/17 14:00 01/14/17 10: 00 Chloride IVPB 100 mls/hr Q4H-IV MONSERRAT Administration Protocol Insulin Aspart 1 vial 01/13/17 16:30 01/14/17 12:04 Novolog Vial Sliding Scale - SQ 6 units ACHS MONSERRAT Administration Protocol Insulin Detemir 25 units 01/13/17 22:00 01/14/17 06:40 Levemir Vial SQ 25 units BID@0700,2200 MONSERRAT Administration Oxycodone HCl 5 mg 01/13/17 13:14 01/14/17 08:39 Roxicodone - PO 5 mg Q4H PRN Administration PAIN ASSESSMENT/PLAN: 51 year old male with past medical history of borderline diabetes not on any medications, presents with two open lesions on back with surrounding erythema, edema, purulent discharge, pain, admitted for sepsis secondary to abscesses. # Sepsis secondary to multiple abscess of the back; I&D 01/13; (first debridement 01/08) -wbc count trending down; afebrile -s/p debridement 01/13 -dressing with kerlex packing/ betadine daily -wound cx, MSSA+; sensitivities -IV nafcillin q4h (day 5); switch to po when clinically fit -surgery/ID following # Newly diagnosed Diabetes type II; -increased levemir to 25U bid -insulin SS; bgm q4h -hemoglobin A1C 11.9 #hypernatremia -resolved #hyponatremia- d/c fluids ; delbert FEN: Fluids: po Electrolyes; see above Diet: diabetic VTE prophylaxis: loxenox Disposition: IV antibiotics; wound care Visit type - Emergency Visit Emergency Visit: Yes ED Registration Date: 01/07/17 Care time: The patient presented to the Emergency Department on the above date and was hospitalized for further evaluation of their emergent condition. - New Patient This patient is new to me today: No - Critical Care Critical Care patient: No
--- NOTE | 2017-01-14 16:47 | PN ---
Teaching Attending Note Name of Resident: Ila Covington ATTENDING PHYSICIAN STATEMENT I saw and evaluated the patient. I reviewed the resident's note and discussed the case with the resident. I agree with the resident's findings and plan as documented. SUBJECTIVE:states that he continues to have pain on his back but is relieved with pain medication. states that he feels itchy on his feet when the abx was hung an hour ago but never experienced this before. denies CP, SOB,fever, chills , N/V/C/D OBJECTIVE: Last Vital Signs Temp Pulse Resp BP Pulse Ox 99.0 F 100 H 18 140/80 96 01/14/17 14:55 01/14/17 14:55 01/14/17 14:55 01/14/17 14:55 01/14/17 10:00 General NAD CV S1 S2 RRR no murmur/rub/gallop Lungs CTA B/L no wheezing/rales/rhonchi Skin whole upper back covered in dressing. dressing c/d/i ASSESSMENT AND PLAN: 51yo M with PMH newly diagnosed DM presented to the ER and was admitted for further evaluation of their emergent condition 1. Sepsis due to abscess and cellulitis of the back- s/p I&D x2 (01/08 and 01/13). WCx +MSSA on Nafcillin day 5. persistent leukocytosis, will need to monitor if improves with repeat debridement. will evaluate wounds tomorrow. states he developed pruritis after abx being hung but have been on for 5 days with no symptoms before. will monitor. benadryl prn. will wait for repeat Cx. surgery and ID on board. pain control 2. DM- improved. on lantus BID dosing. cont to titrate to optimize control. diabetic teaching. 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 DVT ppx- will start lovenox 4. plan d/w son present at bedside. answered all questions. verbalized agreement with plan
--- NOTE | 2017-01-14 17:32 | PROC ---
Procedure Note Procedure: POD 1 NO acute events Pain controlled Vital Signs Period Temp Pulse Resp BP Sys/Cabrera Pulse Ox Last 24 Hr 98.4 F-99.6 F 84-100 18-20 130-148/79-81 96 Wounds packed CBC, BMP 01/14/17 06:35 01/13/17 16:00 Antibiotics per ID Daily wound care
[2017-01-14] MEDS ORDERED: INSULIN (NOVOLOG) ASPART 100 UNITS/ML 10ML VIAL ONE ×2 (19:17→21:35)
[2017-01-15] MEDS: NAFCILLIN - 2 GM in SODIUM CHLORIDE 100 ML IVPB SCH ×6 (02:57→21:32)
[2017-01-15] MEDS ORDERED: PT OWN MED DRAWER 7, Y5N ONE ×4 (06:09→21:24)
[2017-01-15] MEDS: INSULIN SLIDING SCALE (NOVOLOG) 1 VIAL SQ SCH ×4 (06:19→21:41)
[2017-01-15] MEDS: INSULIN DETEMIR 100 UNITS/ML MDV SQ SCH ×2 (06:19→21:40)
[2017-01-15 07:02] LABS: MCH 28.4 pg (25.7-33.7); MCHC 33.8 g/dl (32.0-35.9); MEAN CELL VOLUME 84.2 fl (80-96); MEAN PLT VOLUME 6.5 fl (7.5-11.1); PLATELET COUNT 344 K/MM3 (134-434); RDW 13.1 % (11.9-15.9); WHITE BLOOD COUNT 11.5 K/mm3 (4.0-10.0)
[2017-01-15 07:34] LABS: C-REACTIVE PROTEIN 6.9 MG/DL (0.00-0.3); CALCIUM 8.6 mg/dL (8.5-10.1); CREATININE 0.8 mg/dL (0.7-1.3)
[2017-01-15] MEDS ORDERED: diphenhydrAMINE HCL 25 MG CAPSULE (FP) PO ONE (08:45)
[2017-01-15 08:54] LABS: METAMYELOCYTE 1 % (0-2)
[2017-01-15 08:55] LABS: PLATELET ESTIMATE ADEQUATE (NORMAL)
[2017-01-15] MEDS: ENOXAPARIN NA (PORCINE) 40 MG/0.4 ML DISP.SYRIN SQ SCH (09:37)
--- NOTE | 2017-01-15 11:07 | PN ---
Progress Note (short form) - Note Progress Note: no fevers s/p debridement 4/3 Vital Signs Period Temp Pulse Resp BP Sys/Cabrera Pulse Ox Last 24 Hr 98.4 F-99.2 F 80-100 18-20 109-140/55-87 96 cor-rrr lungs clear abd soft,nt ext no edema back abscesses- no purulence, less surrounding erythema and induration CBC, BMP 01/15/17 06:10 01/15/17 06:10 Microbiology 01/07/17 13:08 Blood - Peripheral Venous Blood Culture - Final NO GROWTH AFTER 5 DAYS INCUBATION 01/07/17 13:08 Blood - Peripheral Venous Blood Culture - Final NO GROWTH AFTER 5 DAYS INCUBATION 01/08/17 15:45 Abscess Gram Stain - Final 01/08/17 15:45 Abscess Body Fluid Culture - Final Presumptive Mssa (Pbp2a Neg) 01/08/17 15:45 Abscess Anaerobic Culture - Final 01/08/17 15:45 Abscess Gram Stain - Final 01/08/17 15:45 Abscess Body Fluid Culture - Final Staphylococcus Aureus 01/08/17 15:45 Abscess Anaerobic Culture - Final 01/07/17 13:08 Back Gram Stain - Final 01/07/17 13:08 Back Wound Culture - Final Staphylococcus Aureus 01/07/17 13:08 Urine - Urine Clean Catch Urine Culture - Final a/p MSSA abscesses- continue nafcillin continue local wound care s/p debridement #2 check esr/crp diabetes-sugars improving d/w primary service to continue nafcillin, if he develops itching again can switch to cefazolin 2 grams Q8h Problem List - Problems (1) Sepsis Code(s): A41.9 - SEPSIS, UNSPECIFIED ORGANISM Qualifiers: Sepsis type: sepsis due to unspecified organism Qualified Code(s): A41.9 - Sepsis, unspecified organism (2) Abscess Code(s): L02.91 - CUTANEOUS ABSCESS, UNSPECIFIED (3) Diabetes Code(s): E11.9 - TYPE 2 DIABETES MELLITUS WITHOUT COMPLICATIONS Qualifiers: Diabetes mellitus type: other specified (including LETICIA)
--- NOTE | 2017-01-15 11:36 | PN ---
[id number]. Vital Signs Period Temp Pulse Resp BP Sys/Cabrera Pulse Ox Last 24 Hr 98.4 F-99.2 F 80-100 18-20 109-140/55-87 96 PE: GEN: appears comfortable Upper shoulder: wound checked, appears clean and without necrotic tissue CBC, BMP 01/15/17 06:10 01/15/17 06:10 A/P: s/p bilateral upper shoulder debridement, twice Wounds seen today with Dr. Moise and mukul. They appear clean Stable surgically and cleared for discharge, may follolw-up in the wound clinic He may shower daily and repack wounds with betadine soaked kerlix/gauze <Nannette Nguyen - Last Filed: 01/15/17 11:31> - Note Progress Note: Agree Wound clean AVSS Continue daily wound care Can discharge from surgery standpoint VNS for home Antibiotics per ID Reconsult PRN <Gamaliel Moise - Last Filed: 01/15/17 12:55> Problem List - Problems (1) Cellulitis of back Code(s): L03.312 - CELLULITIS OF BACK [ANY PART EXCEPT BUTTOCK] (2) Diabetes Code(s): E11.9 - TYPE 2 DIABETES MELLITUS WITHOUT COMPLICATIONS Qualifiers: Diabetes mellitus type: other specified (including LETICIA) (3) Abscess of upper back excluding scapular region Code(s): L02.212 - CUTANEOUS ABSCESS OF BACK [ANY PART, EXCEPT BUTTOCK] (4) Abscess of lower back Code(s): L02.212 - CUTANEOUS ABSCESS OF BACK [ANY PART, EXCEPT BUTTOCK] (5) Leukocytosis Code(s): D72.829 - ELEVATED WHITE BLOOD CELL COUNT, UNSPECIFIED Qualifiers: Leukocytosis type: other Qualified Code(s): D72.828 - Other elevated white blood cell count <Gamaliel Moise - Last Filed: 01/15/17 12:55>
[2017-01-15] MEDS ORDERED: diphenhydrAMINE HCL 25 MG CAPSULE (FP) PO PRN (11:37)
--- NOTE | 2017-01-15 12:12 | PN ---
Teaching Attending Note Name of Resident: Ila Covington ATTENDING PHYSICIAN STATEMENT I saw and evaluated the patient. I reviewed the resident's note and discussed the case with the resident. I agree with the resident's findings and plan as documented. SUBJECTIVE:continues to have pruritis with dosing of abx. states pain has improved. denies CP, SOB,fever, chills, N/V/C/D OBJECTIVE: Last Vital Signs Temp Pulse Resp BP Pulse Ox 98.5 F 80 20 109/55 96 01/15/17 02:00 01/15/17 02:00 01/15/17 02:00 01/15/17 02:00 01/14/17 21:00 General NAD Skin 2 large abscesses on B/L upper back with some peripheral slough good granulation tissue no drainage. minimal surrounding erythema and swelling. area not tender ASSESSMENT AND PLAN: 51yo M with PMH newly diagnosed DM presented to the ER and was admitted for further evaluation of their emergent condition 1. Sepsis due to abscess and cellulitis of the back- s/p I&D x2 (01/08 and 01/13). WCx +MSSA on Nafcillin day 6. leukocytosis slowly improving. visualized wounds with ID who have seen abscesses prior to debridement and states improvement. may be having allergic reaction to nafcillin. will monitor for next dose if pruritis persists with no relief with benadryl and/or eosinophilia develops will switch to cefazolin. wound care per surgery. pain control 2. DM- improved. on lantus BID dosing. cont to titrate to optimize control. 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 DVT ppx- lovenox 4. plan d/w family present at bedside. answered all questions. verbalized agreement with plan
[2017-01-15] MEDS: oxyCODONE HCL 5 MG TABLET PO PRN (12:45)
[2017-01-15] MEDS: ACETAMINOPHEN 325 MG TABLET (FP) PO PRN (12:46)
--- NOTE | 2017-01-15 15:56 | PN ---
Physical Exam: SUBJECTIVE: Patient seen and examined, c/o of itching after IV antibiotic started, nafcillin, improved with Benadryl. Patient states that pain is better with the paper tape. Afebrile. OBJECTIVE: Vital Signs Period Temp Pulse Resp BP Sys/Cabrera Pulse Ox Last 24 Hr 97.7 F-99.2 F 80-100 18-20 109-140/55-90 96-98 GENERAL: The patient is awake, alert, and fully oriented, in no acute distress. HEAD: Normal with no signs of trauma. EYES: PERRL, extraocular movements intact, sclera anicteric, conjunctiva clear. No ptosis. ENT: Ears normal, nares patent, oropharynx clear without exudates, moist mucous membranes. NECK: Trachea midline, full range of motion, supple. LUNGS: Breath sounds equal, clear to auscultation bilaterally, no wheezes, no crackles, no accessory muscle use. HEART: Regular rate and rhythm, S1, S2 without murmur, rub or gallop. ABDOMEN: Soft, nontender, nondistended, normoactive bowel sounds, no guarding, no rebound, no hepatosplenomegaly, no masses. EXTREMITIES: 2+ pulses, warm, well-perfused, no edema. NEUROLOGICAL: Cranial nerves II through XII grossly intact. Normal speech, gait not observed. PSYCH: Normal mood, normal affect. SKIN: Warm, dry, normal turgor, no rashes or lesions noted Back: POD2 of debridement; back abscess x2; no necrotic tissue, surrounding erythema and edema has improved. NO puss Laboratory Results - last 24 hr 01/14/17 01/14/17 01/15/17 16:59 21:44 06:10 WBC RBC Hgb Hct MCV MCHC RDW Plt Count MPV Neutrophils % Lymphocytes % Monocytes % Eosinophils % Basophils % Metamyelocytes Myelocytes Differential Comment Platelet Estimate ESR Sodium 137 Potassium 4.6 Chloride 99 Carbon Dioxide 29 Anion Gap 9 BUN 11 Creatinine 0.8 POC Glucometer 289 281 Random Glucose 129 H D Calcium 8.6 C-Reactive Protein 6.9 H 01/15/17 01/15/17 01/15/17 06:10 06:10 06:17 WBC 11.5 H RBC 4.33 Hgb 12.3 Hct 36.4 MCV 84.2 MCHC 33.8 RDW 13.1 Plt Count 344 MPV 6.5 L Neutrophils % 63.0 Lymphocytes % 24.0 D Monocytes % 4.0 Eosinophils % 1.0 Basophils % 3.0 H Metamyelocytes 1 D Myelocytes 5 H D Differential Comment Manual diff done Platelet Estimate Adequate ESR 86 H Sodium Potassium Chloride Carbon Dioxide Anion Gap BUN Creatinine POC Glucometer 135 Random Glucose Calcium C-Reactive Protein 01/15/17 11:43 WBC RBC Hgb Hct MCV MCHC RDW Plt Count MPV Neutrophils % Lymphocytes % Monocytes % Eosinophils % Basophils % Metamyelocytes Myelocytes Differential Comment Platelet Estimate ESR Sodium Potassium Chloride Carbon Dioxide Anion Gap BUN Creatinine POC Glucometer 298 Random Glucose Calcium C-Reactive Protein Active Medications Generic Name Dose Route Start Last Admin Trade Name Freq PRN Reason Stop Dose Admin Acetaminophen 650 mg 01/13/17 13:14 01/15/17 12:46 Tylenol - PO 650 mg Q4H PRN Administration FEVER OR PAIN Amino Acids 30 ml 01/15/17 17:30 Prosource No Carb Liquid Pkt PO BID@0800,1730 MONSERRAT Diphenhydramine HCl 25 mg 01/15/17 11:37 Benadryl - PO Q6H PRN FOR ITCHING Docusate Sodium 100 mg 01/13/17 13:14 01/15/17 09:37 Colace - PO 100 mg BID PRN Administration CONSTIPATION Enoxaparin Sodium 40 mg 01/15/17 10:00 01/15/17 09:37 Lovenox - SQ 40 mg DAILY MONSERRAT Administration Nafcillin Sodium 2 gm/ Sodium 100 mls @ 100 mls/hr 01/13/17 14:00 01/15/17 14: 00 Chloride IVPB 100 mls/hr Q4H-IV MONSERRAT Administration Protocol Insulin Aspart 1 vial 01/13/17 16:30 01/15/17 12:20 Novolog Vial Sliding Scale - SQ 6 units ACHS MONSERRAT Administration Protocol Insulin Detemir 27 units 01/14/17 16:22 01/15/17 06:19 Levemir Vial SQ 27 units BID@0700,2200 MONSERRAT Administration Oxycodone HCl 5 mg 01/13/17 13:14 01/15/17 12:45 Roxicodone - PO 5 mg Q4H PRN Administration PAIN ASSESSMENT/PLAN: 51 year old male with past medical history of borderline diabetes not on any medications, presents with two open lesions on back with surrounding erythema, edema, purulent discharge, pain, admitted for sepsis secondary to abscesses. # Sepsis secondary to multiple abscess of the back; I&D 01/13; (first debridement 01/08) -wbc count trending down; afebrile -cleasred by surgery stand point; continue wound care daily with kerlex packing / betadine -will need wound care outpatient -wound cx, MSSA+; sensitivities -IV nafcillin q4h (day 6); -switch to po when clinically fit -surgery/ID #itching afer IV antibiotic: witch to oral cefazolin if continues # Newly diagnosed Diabetes type II; -increased levemir to 27U bid -insulin SS; bgm q4h -hemoglobin A1C 11.9 #hypernatremia -resolved #hyponatremia- d/c fluids ; delbert FEN: Fluids: po Electrolyes; see above Diet: diabetic VTE prophylaxis: loxenox Disposition: cleared by surgery; would benefit from another day of IV antibiotics Visit type - Emergency Visit Emergency Visit: Yes ED Registration Date: 01/07/17 Care time: The patient presented to the Emergency Department on the above date and was hospitalized for further evaluation of their emergent condition. - New Patient This patient is new to me today: No - Critical Care Critical Care patient: No
[2017-01-15] MEDS: AMINO ACIDS/PROTEIN HYDROLYS 30 ML LIQUID.PKT PO SCH (17:23)
[2017-01-16] MEDS: NAFCILLIN - 2 GM in SODIUM CHLORIDE 100 ML IVPB SCH ×6 (03:22→23:25)
[2017-01-16] MEDS ORDERED: PT OWN MED DRAWER 7, Y5N ONE ×5 (05:03→23:23)
[2017-01-16] MEDS: INSULIN SLIDING SCALE (NOVOLOG) 1 VIAL SQ SCH ×4 (05:59→23:27)
[2017-01-16] MEDS: INSULIN DETEMIR 100 UNITS/ML MDV SQ SCH ×2 (06:23→23:27)
[2017-01-16 09:03] LABS: ALBUMIN 2.6 g/dl (3.4-5.0); ALK PHOS 143 U/L (45-117); ANION GAP 12 (8-16); BILIRUBIN,TOTAL 0.8 mg/dL (0.2-1.0); CALCIUM 8.4 mg/dL (8.5-10.1); CO2 23 mmol/L (21-32); CREATININE 0.8 mg/dL (0.7-1.3); GLUCOSE,RANDOM 147 mg/dL (74-106); SGOT/AST 24 U/L (15-37); SGPT/ALT 38 U/L (12-78); TOT PROT 7.4 g/dl (6.4-8.2)
[2017-01-16] MEDS: AMINO ACIDS/PROTEIN HYDROLYS 30 ML LIQUID.PKT PO SCH ×2 (09:19→17:40)
[2017-01-16] MEDS: ENOXAPARIN NA (PORCINE) 40 MG/0.4 ML DISP.SYRIN SQ SCH (09:19)
[2017-01-16 10:44] LABS: BASOPHIL 1.1 % (0-2.0); EOSINOPHIL 2.6 % (0-4.5); MCH 28.2 pg (25.7-33.7); MCHC 33.1 g/dl (32.0-35.9); MEAN CELL VOLUME 85.4 fl (80-96); MEAN PLT VOLUME 6.9 fl (7.5-11.1); NEUTROPHILS 70.7 % (42.8-82.8); PLATELET COUNT 356 K/MM3 (134-434); RDW 12.8 % (11.9-15.9); WHITE BLOOD COUNT 9.2 K/mm3 (4.0-10.0)
--- NOTE | 2017-01-16 14:28 | PN ---
Progress Note (short form) - Note Progress Note: no fevers s/p debridement 4/3 feels well Vital Signs Period Temp Pulse Resp BP Sys/Cabrera Pulse Ox Last 24 Hr 98.1 F-100.1 F 77-92 18-20 130-134/62-83 98-99 cor-rrr lungs clear abd soft,nt ext no edema less erythema induration surrounding ulcers on back no purulence CBC, BMP 01/16/17 06:30 01/16/17 06:30 a/p MSSA abscesses- continue nafcillin, wbc now normal, low grade temp this am, should be ready for d/c in am on po keflex 500 tid should f/u with wound care continue local wound care s/p debridements check esr/crp diabetes-sugars improving d/w Dr Fernández Problem List - Problems (1) Sepsis Code(s): A41.9 - SEPSIS, UNSPECIFIED ORGANISM Qualifiers: Sepsis type: sepsis due to unspecified organism Qualified Code(s): A41.9 - Sepsis, unspecified organism (2) Abscess Code(s): L02.91 - CUTANEOUS ABSCESS, UNSPECIFIED (3) Diabetes Code(s): E11.9 - TYPE 2 DIABETES MELLITUS WITHOUT COMPLICATIONS Qualifiers: Diabetes mellitus type: other specified (including LETICIA)
--- NOTE | 2017-01-16 14:56 | PN ---
Teaching Attending Note Name of Resident: Ila Covington ATTENDING PHYSICIAN STATEMENT I saw and evaluated the patient. I reviewed the resident's note and discussed the case with the resident. I agree with the resident's findings and plan as documented. SUBJECTIVE:states pain is improved. only worse when he lays on his back. pruritis resolved. denies CP, SOB,fever, chills OBJECTIVE: Last Vital Signs Temp Pulse Resp BP Pulse Ox 98.2 F 92 H 18 130/83 99 01/16/17 10:00 01/16/17 10:00 01/16/17 10:00 01/16/17 10:01/16/17 09:00 General NAD Skin 2 large abscesses on B/L upper back with some peripheral slough on the L none appreciated on R. good granulation tissue no drainage. minimal surrounding erythema and swelling. area not tender ASSESSMENT AND PLAN: 51yo M with PMH newly diagnosed DM presented to the ER and was admitted for further evaluation of their emergent condition 1. Sepsis due to abscess and cellulitis of the back- s/p I&D x2 (01/08 and 01/13). WCx +MSSA on Nafcillin day 7. leukocytosis slowly improving. wounds appears to be improving. will continue abx today and d/c tomorrow on oral abx. duration to be determined by ID. wound care to be taught to /children. will need to come to wound care center for monitoring. daily packing. pain control 2. DM- improved. on lantus BID dosing. cont to titrate to optimize control. 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 DVT ppx- lovenox 4. d/c planning in the AM
[2017-01-17] MEDS: NAFCILLIN - 2 GM in SODIUM CHLORIDE 100 ML IVPB SCH ×3 (02:40→09:22)
[2017-01-17] MEDS ORDERED: PT OWN MED DRAWER 7, Y5N ONE (05:51)
[2017-01-17] MEDS: INSULIN DETEMIR 100 UNITS/ML MDV SQ SCH (06:38)
[2017-01-17] MEDS: INSULIN SLIDING SCALE (NOVOLOG) 1 VIAL SQ SCH ×2 (06:38→11:53)
[2017-01-17] MEDS: AMINO ACIDS/PROTEIN HYDROLYS 30 ML LIQUID.PKT PO SCH (09:21)
[2017-01-17] MEDS: ENOXAPARIN NA (PORCINE) 40 MG/0.4 ML DISP.SYRIN SQ SCH (09:22)
[2017-01-17 09:33] VITALS: BP 134/77; TEMP 98.7
[2017-01-17 11:39] VITALS: PULSE 82
--- NOTE | 2017-01-17 13:00 | DS ---
Physical Exam: SUBJECTIVE: Patient seen and examined, afebrile, no events overnight, less pain. Wound care explained to family this am, along with insulin administration. OBJECTIVE: Vital Signs Period Temp Pulse Resp BP Sys/Cabrera Pulse Ox Last 24 Hr 98.1 F-98.7 F 70-86 18-20 126-134/77-84 97-98 PHYSICAL EXAM GENERAL: The patient is awake, alert, and fully oriented, in no acute distress. HEAD: Normal with no signs of trauma. EYES: PERRL, extraocular movements intact, sclera anicteric, conjunctiva clear. ENT: Ears normal, nares patent, oropharynx clear without exudates, moist mucous membranes. NECK: Trachea midline, full range of motion, supple. LUNGS: Breath sounds equal, clear to auscultation bilaterally, no wheezes, no crackles, no accessory muscle use. HEART: Regular rate and rhythm, S1, S2 without murmur, rub or gallop. ABDOMEN: Soft, nontender, nondistended, normoactive bowel sounds, no guarding, no rebound, no hepatosplenomegaly, no masses. EXTREMITIES: 2+ pulses, warm, well-perfused, no edema. NEUROLOGICAL: Cranial nerves II through XII grossly intact. Normal speech, gait not observed. PSYCH: Normal mood, normal affect. SKIN: Warm, dry, normal turgor, no rashes or lesions noted. Back: 2 open wounds left and right upper back; less erythema, less edema, no drainage/puss; arounr 4cm deep; and 4x5 cm length LABS Laboratory Results - last 24 hr 01/16/17 01/16/17 01/17/17 17:08 23:26 06:37 POC Glucometer 215 169 129 01/17/17 11:06 POC Glucometer 250 HOSPITAL COURSE: Date of Admission:01/07/17 Date of Discharge: 01/17/17 Mr. Gibbs is a 51 year old male with a past medical history of borderline diabetes, not on medication, who preseented to the emergency room with two open lesions on back with surrounding erythema, edema, purulent discharge, pain, admitted for sepsis secondary to abscesses. Patient was placed on broad spectrum IV antibiotics, and abscesses were debrided on 01/08/2017. Patient condition did not improve, he was again taken for debridement on . Wound culture grew MSSA+; sensitive to nafcillin. He has currently completed 7 days of IV nafcillin. He will be sent home on keflex 500mg bid x 14 days. Patient and family also were taught about wound care. Dressing should be changed and packed with kerlex packing/ betadine daily. During hospital stay blood sugars were elevated >400s. Currently controlled with 27 Units of levemir bid and with a sliding scale. Patient is to follow up with with new primary physician to further manage diabetes. Minutes to complete discharge: 35 Discharge Summary Reason For Visit: CELLULITIS OF BACK EXCEPT BUTTOCK; SEPSIS Current Active Problems Abscess (Acute) Abscess of lower back (Acute) Abscess of upper back excluding scapular region (Acute) Cellulitis of back (Acute) Diabetes (Acute) Leukocytosis (Acute) Sepsis (Acute) - Home Medications Comprehensive Discharge Medication List: Ambulatory Orders NK [No Known Home Medication] 01/07/17 This patient is new to me today: No Emergency Visit: Yes ED Registration Date: 01/07/17 Care time: The patient presented to the Emergency Department on the above date and was hospitalized for further evaluation of their emergent condition. Critical Care patient: No - Discharge Referral Referred to [facility] Med [facility] Yes Physician Referral: Toñito Mccray MD ([facility])
--- NOTE | 2017-01-17 14:02 | PN ---
Teaching Attending Note Name of Resident: Ila Covington ATTENDING PHYSICIAN STATEMENT I saw and evaluated the patient. I reviewed the resident's note and discussed the case with the resident. I agree with the resident's findings and plan as documented. SUBJECTIVE:currently asymptomatic. pain improved. denies CP, SOB,fever, chills, N/V/C/D OBJECTIVE: Last Vital Signs Temp Pulse Resp BP Pulse Ox 98.7 F 82 18 134/77 97 01/17/17 09:32 01/17/17 11:39 01/17/17 09:32 01/17/17 09:32 01/17/17 11:39 General NAD Skin 2 large abscesses on B/L upper back with packing in place. good granulation tissue no drainage. minimal surrounding erythema and swelling. area not tender ASSESSMENT AND PLAN: 51yo M with PMH newly diagnosed DM presented to the ER and was admitted for further evaluation of their emergent condition 1. Sepsis due to abscess and cellulitis of the back- s/p I&D x2 (01/08 and 01/13). WCx +MSSA on Nafcillin day 8. d/w surgery if pt would benefit from wound vac which he agreed. however pt has no insurance. d/w CM/SW/family about cost of wound vac and supplies. family to consider if they can afford ($3200 for machine alone) daughter taught proper wound care techniques. [facility] established to assist in wound care but explained to family they are unable to do daily wound care. will continue keflex for additional 10days. to f/u in wound care center and with ID. 2. DM- improved. on lantus BID dosing. diabetic teaching. info on symptoms of hypoglycemia handout given. 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 DVT ppx- lovenox 4. d/c home. informed importance of proper wound care and follow up. agreed to see PMD on friday. (to establish care with Dr Mccray)
== END 2017-01-17 14:36 | disposition home or self-care (01) | DRG 720 ==
LOC: JER 10:47 → JERBED 16:54 → J5S 20:18
PROVIDERS: ADMIT Internal Medicine; ATTEND Internal Medicine
PROC: 0W9L0ZZ Drainage of Lower Back, Open Approach (ICD-10-PCS; 2017-01-08)
PROC: 0W9K0ZZ Drainage of Upper Back, Open Approach (ICD-10-PCS; 2017-01-08)
PROC: 0W9K0ZZ Drainage of Upper Back, Open Approach (ICD-10-PCS; 2017-01-08)
PROC: 0W9L0ZZ Drainage of Lower Back, Open Approach (ICD-10-PCS; principal; 2017-01-08 13:30)
PROC: 0JB70ZZ Excision of Back Subcutaneous Tissue and Fascia, Open Approach (ICD-10-PCS; 2017-01-13)
PROC: 0JB70ZZ Excision of Back Subcutaneous Tissue and Fascia, Open Approach (ICD-10-PCS; 2017-01-13)
DX: A41.01 Sepsis due to Methicillin susceptible Staphylococcus aureus (principal); L03.312 Cellulitis of back [any part except buttock and flank]; E87.0 Hyperosmolality and hypernatremia; L02.212 Cutaneous abscess of back [any part, except buttock and flank]; Z87.891 Personal history of nicotine dependence; D72.829 Elevated white blood cell count, unspecified; E11.622 Type 2 diabetes mellitus with other skin ulcer; L98.429 Non-pressure chronic ulcer of back with unspecified severity; E11.65 Type 2 diabetes mellitus with hyperglycemia; E87.1 Hypo-osmolality and hyponatremia; L29.8 Other pruritus; T36.0X5A Adverse effect of penicillins, initial encounter; Z79.4 Long term (current) use of insulin; E66.8 Other obesity; Z68.29 Body mass index [BMI] 29.0-29.9, adult; Z71.3 Dietary counseling and surveillance
CPT/HCPCS: 36415; 76604; 80048; 80053; 81003; 82009; 82803; 82947; 83036; 83605; 85025; 85610; 85651; 86140; 86850; 86900; 86901; 87040; 87070; 87075; 87086; 87186; 87205; 87389; 88304-TC; 93005; 93010; 94760; 97116-GP; 97161-GP; 99283-25; G0480